=== PATIENT | male | born 1950 | race Caucasian/White ===

== ENCOUNTER 2016-09-20 11:54 | Inpatient (IN) | payer MEDICAID ==
[~2016-09-20] VITALS: Ht 165.1 cm; Wt 54.4 kg
[~2016-09-20 11:54] MED LIST: AZIT250T94 PO; D-ME473S18 PO
[2016-09-20] MEDS ORDERED: ACETAMINOPHEN 500 MG TAB PO STA (14:05)
--- NOTE | 2016-09-20 14:34 | RADRPT ---
PROCEDURE: XR Chest. CLINICAL INDICATION: Fever and cough TECHNIQUE: PA and lateral chest x-ray. COMPARISON: 03/15/2016 FINDINGS: Significant increased consolidation is seen in the left lung apex. Pleural thickening and scarring and hilar retraction is seen with infiltration and architectural distortion. This is similar in meghan earance when compared to the prior study dated 03/15/2016. This may all be related to benign postin flammatory changes and old burned out TB. However, CT scan of the chest is advised to exclude under lying neoplasm and/or superimposed acute infection. Left lower lung is clear. The right lung is clear. The cardiomediastinal silhouette is unremarkabl e. Aortic atherosclerotic vascular calcifications are present. The surrounding osseous structures are unremarkable. IMPRESSION: 1. Dense infiltration in the left upper lung with pleural thickening and scarring and architectural distortion. CT scan of the chest is advised to ensure that this is all related to benign old posti nflammatory change and to exclude underlying acute infection/neoplasm. RPTAT: HMJB .Jigar Keita MD, Date Time Electronically viewed and signed by .Jigar Keita MD, MD on 09/20/2016 14:34 .B/
--- NOTE | 2016-09-20 14:54 | ERD ---
ER Documentation Chief Complaint Date/Time DATE: 09/20/16 TIME: 14:52 Chief Complaint pt bib daughter with c/o fever, cough, stroud, sore throat x 3 days HPI This is a 66-year-old male who presents to the ER with headache, fever, chills, cough for the last 3 days. Patient is nonverbal secondary to prior surgery for a tumor.. Daughter his voice box was taken out. Patient has not taken anything for his symptoms. Patient did not receive the flu shot this year. Her daughter cough is worsening and she notices that her dad has been shaking a lot and his fever has not gotten any better. Patient denies any chest pain or shortness of breath. ROS 12 point review of systems was done, all negative except per HPI. Medications Home Meds Active Scripts Dextromethorphan Hb-Promethazine Hcl (Promethazine DM Syrup) 473 Ml Syrup, 5 ML PO Q6 Y for COUGH for 5 Days, ML Prov:ELAINE LÓPEZ MD 03/15/16 Azithromycin* (Zithromax*) 250 Mg Tablet, 250 MG PO .ZPACK DIRECTED, #6 TAB TAKE 500 MG (2 TABS) THE FIRST DAY THEN 250 MG (1 TAB) DAYS 2-5 Prov:ELAINE LÓPEZ MD 03/15/16 Allergies Allergies: Coded Allergies: No Known Allergy (Unverified , 09/20/16) PMhx/Soc History of Surgery: Yes (TRACHE) Anesthesia Reaction: No Hx Neurological Disorder: No Hx Respiratory Disorders: No Hx Cardiac Disorders: Yes (HTN) Hx Psychiatric Problems: No Hx Miscellaneous Medical Probl: No Hx Alcohol Use: No Hx Substance Use: No Hx Tobacco Use: No Physical Exam Vitals Vital Signs Date Time Temp Pulse Resp B/P Pulse Ox O2 Delivery O2 Flow Rate FiO2 09/20/16 12:00 101.2 124 20 145/88 98 Physical Exam GENERAL: The patient is well developed and appropriate for usual state of health , in no apparent distress. HEENT: Atraumatic. Conjunctivae are pink. Pupils equal, round, and reactive to light. Extraocular muscles are grossly intact. Bilateral tympanic membranes are clear with no evidence of erythema, effusion or dulling of the light reflex. The oropharynx is clear with no erythema or exudates. NECK: C-spine is soft and supple. There is no cervical lymphadenopathy. CHEST: Clear to auscultation bilaterally. There are no rales, wheezes or rhonchi. HEART: Regular rate and rhythm. No murmurs, clicks, rubs or gallops. ABDOMEN: Soft, nontender and nondistended. Good bowel sounds. No rebound or guarding. No gross peritonitis. No gross organomegaly or masses. No Casanova sign or McBurney point tenderness. SKIN: There is no apparent rash or petechia. The skin is warm and dry. Results 24 hrs Current Medications Medications (Trade) Dose Ordered Sig/Kg Route PRN Reason Start Time Stop Time Status Last Admin Dose Admin Acetaminophen (Tylenol Tab) 1,000 mg ONCE STAT PO 09/20/16 14:05 09/20/16 14:06 DC 09/20/16 14:12 Procedures/MDM This is a 66-year-old male that presents to the ER with fever, cough, chills, headache for the last 4 days. Patient appears to have some sort of fungal infection in the lungs. Patient did have fever and chills in the ER. Patient would benefit from admission to the hospital for further management and care Departure Diagnosis: Primary Impression: Cough Condition: FRANCISCA Yin Sep 20, 2016 14:54
--- NOTE | 2016-09-20 15:52 | RADRPT ---
PROCEDURE: CT Chest without contrast. CLINICAL INDICATION: Cough/fever TECHNIQUE: Volumetrically acquired images of the thorax obtained without intravenous contrast were reformatted in the axial, coronal, and sagittal planes. Radiation dose: CTDIvol = 3.9 mGy; total DLP = 153 mGy-cm. One or more of the following dose reduction techniques were used: - Automated exposure control. - Adjustment of the mA and/or kV according to patient size. - Use of iterative reconstruction technique. COMPARISON: No prior studies are available for comparison. FINDINGS: There is complete cicatricial atelectasis with fibrotic consolidation of the left upper lobe with tr action bronchiectasis. There is a mucous impaction. There may be a fungus ball/mycetoma identified in an area of cavitation within the consolidated left upper lobe. There is moderate centrilobular and paraseptal emphysema with diffuse bronchial wall thickening and airway ectasia. There are scattered subcentimeter pulmonary nodules measuring up to 6 mm in the right upper, right m iddle, and left lower lobes. There is peribronchial ground-glass opacity with interstitial thickeni ng identified in the anterior segment of the left upper lobe. There are multiple subcentimeter nasim-centimeter lymph nodes identified in the bilateral paratrachea l and para-aortic lymph node stations, likely reactive. Normal heart size without pericardial effusion. Included upper abdomen reveals no significant abnormality. No suspicious osseous lesion. IMPRESSION: Complete cicatricial atelectasis of the left upper lobe with traction bronchiectasis and associated volume loss/leftward mediastinal shift, presumably sequelae of prior granulomatous infection. There may be a fungus ball/mycetoma with an area of cavitation within the consolidated left upper lobe. S cattered nodular opacities in conjunction with areas of exudative inflammatory airway changes are co ncerning for superimposed acute granulomatous infection (i.e. Fungal, mycobacterial). Consider mitch elation with bronchoscopy/bronchoalveolar lavage. Background of moderate emphysema. Reactive multi-compartmental mediastinal lymphadenopathy. RPTAT: HEKC .Artie Craven MD, Date Time Electronically viewed and signed by .Artie Craven MD, on 09/20/2016 15:52 .C/
[2016-09-20] MEDS ORDERED: SOD CHLORIDE 0.9% 1,000 ML IV ONE (17:00)
[2016-09-20] MEDS ORDERED: morphine 10 MG INJ IV ONE (17:00)
[2016-09-20 17:14] LABS: ADD SCAN DIFF NO
[2016-09-20 17:16] LABS: BASOPHIL # 0.1 10^3/ul (0.0-0.1); BASOPHILS % 0.4 % (0.0-2.0); EOSINOPHILS # 0.1 10^3/ul (0.0-0.5); EOSINOPHILS % 0.7 % (0.0-7.0); HEMATOCRIT 37.5 % (42.0-52.0); HEMOGLOBIN 12.4 g/dl (14.0-18.0); LYMPHOCYTES # 1.1 10^3/ul (0.8-2.9); LYMPHOCYTES % 8.8 % (15.0-51.0); MEAN CORPUSCULAR HEMOGLOBIN 31.2 pg (29.0-33.0); MEAN CORPUSCULAR HGB CONC 33.1 g/dl (32.0-37.0); MEAN CORPUSCULAR VOLUME 94.2 fl (82.0-101.0); MEAN PLATELET VOLUME 8.3 fl (7.4-10.4); MONOCYTE # 1.1 10^3/ul (0.3-0.9); MONOCYTES % 8.8 % (0.0-11.0); PLATELET COUNT 434 10^3/UL (140-415); RED BLOOD COUNT 3.98 10^6/ul (4.70-6.10); RED CELL DISTRIBUTION WIDTH 14.6 % (11.5-14.5); WHITE BLOOD COUNT 12.3 10^3/ul (4.8-10.8)
[2016-09-20 17:19] LABS: ADD UMIC YES; URINE BILIRUBIN (Dip) NEGATIVE (NEGATIVE); URINE BLOOD (Dip) NEGATIVE (NEGATIVE); URINE COLOR LT. YELLOW (YELLOW); URINE GLUCOSE (Dip) NEGATIVE (NEGATIVE); URINE KETONES (Dip) NEGATIVE (NEGATIVE); URINE LEUKOCYTE ESTERASE (Dip) NEGATIVE (NEGATIVE); URINE NITRITE (Dip) NEGATIVE (NEGATIVE); URINE TOTAL PROTEIN (Dip) 4+ (NEGATIVE); URINE UROBILINOGEN (Dip) 0.2 E.U./dL (0.1-1.0)
[2016-09-20 17:25] LABS: INR 1.14; PROTIME 14.6 Sec (12.2-14.2); PT RATIO 1.1
[2016-09-20 17:57] LABS: SQUAMOUS EPITHELIAL CELL,UR RARE; URINE RBCS NONE SEEN /HPF (0)
[2016-09-20 17:58] LABS: ALBUMIN 4.2 g/dl (3.3-4.9); CHLORIDE 101 mmol/L (97-110)
[2016-09-20 17:59] LABS: POTASSIUM 4.8 mmol/L (3.5-5.1); SODIUM 143 mmol/L (135-144)
[2016-09-20 18:01] LABS: ALANINE AMINOTRANSFERASE 14 IU/L (13-69); ALKALINE PHOSPHATASE 99 IU/L (42-121); ANION GAP 21 (8-16); ASPARTATE AMINO TRANSFERASE 13 IU/L (15-46); BILIRUBIN,INDIRECT 0.2 mg/dl (0-1.1); BILIRUBIN,TOTAL 0.2 mg/dl (0.2-1.3); BLOOD UREA NITROGEN 30 mg/dl (7-20); CARBON DIOXIDE 26 mmol/L (21-31); CREATININE 2.68 mg/dl (0.61-1.24); TOTAL PROTEIN 7.2 g/dl (6.1-8.1)
[2016-09-20 18:02] LABS: CALCIUM 9.3 mg/dl (8.4-10.2); GLUCOSE 98 mg/dl (70-220)
[2016-09-20 18:17] LABS: TROPONIN-I < 0.010 ng/ml (0.00-0.12)
[2016-09-20] MEDS ORDERED: SOD CHLORIDE 0.9% 1,000 ML IV SCH ×2 (20:08→20:18)
--- NOTE | 2016-09-20 20:28 | HP ---
Date/Time of Note Date/Time of Note DATE: 09/20/16 TIME: 20:25 Assessment/Plan VTE Prophylaxis VTE Prophylaxis Intervention: heparin Assessment/Plan Assessment/Plan 66 yo male with a past medical history of essential hypertension, tracheostomy, who presents with fevers/chills x 3 days. 1. Sepsis 2/2 PNA - fungal vs other - will admit the patient to telemetry, consult pulm/ID, IV antibiotics and antifungals, AFB x 3, respiratory cultures, check influenza, respiratory precautions 2. Acute renal failure - 2/2 #1 - continue with IVF, monitor acute changes, renally adjust medications, avoid nephrotoxins, nephro consult 3. Essential hypertension - hydralazine prn for SBP > 160 4. Tracheostomy - frequent cleaning 5. GI ppx - pepcid 6. DVT ppx - heparin answered all of his questions. as per clinical course. this history and physical took greater then 45 minutes to complete HPI/ROS Admit Date/Time Admit Date/Time 09/20/2016, 8:25 pm Hx of Present Illness 66 yo male with a past medical history of essential hypertension, tracheostomy, who presents with fevers/chills x 3 days. He states that for the last 3 days, he has had cough with productive greenish sputum, blood tinged sputum, and high fevers with muscle/bone pain. He also complains of headaches. He is progressively getting short of breath. Denies any chest pain, loss of consciousness, urinary/bowel irregularities, nausea/vomiting/diarrhea/ constipation, or other constitutional symptoms. He recently came from [facility] in July 2016. Denies any sick contacts. 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 Medical History: hypertension Past Surgical History s/p tracheostomy Family History Significant Family History: hypertension Social History Alcohol Use: none Smoking Status: Former smoker Drug Use: none Exam/Review of Systems Vital Signs Vitals Vital Signs Date Time Temp Pulse Resp B/P Pulse Ox O2 Delivery O2 Flow Rate FiO2 09/20/16 19:39 98.8 94 20 135/63 99 Room Air Exam Exam Gen Lita: mild to moderate distress 2/2 chills , AAOx4 HEENT: NC/AT, PERRLA, EOMI, no pharyngeal erythema, no tonsillar exudates, no lymphadenopathy, no JVD, no carotid bruits NECK: supple, trach site with purulent greenish phlegm noted THORAX: symmetrical, no obvious deformities CV: S1S2, RRR, no M/G/R Lungs: scattered rhonchi, no overt wheezing or crackles Abd: soft, NT/ND, +BS, no rebound, no guarding, neg HSM EXT: trace bilateral lower extremity edema, no ecchymosis, no clubbing, FROM Neuro: CN II-XII grossly intact, no focal deficits Psych: good mentation, alert and oriented, good mood and affect Skin: C/D/I Labs Result Diagram: 09/20/16170909/20/161709 Medications Medications Current Medications Sodium Chloride (NS) 1,000 ml @ 80 mls/hr [id number] IV ; Start 09/20/16 at 20:08 ; Stop 09/21/16 at 08:37 Procedures Procedures CXR IMPRESSION: 1. Dense infiltration in the left upper lung with pleural thickening and scarring and architectural distortion. CT scan of the chest is advised to ensure that this is all related to benign old postinflammatory change and to exclude underlying acute infection/neoplasm. CT chest IMPRESSION: Complete cicatricial atelectasis of the left upper lobe with traction bronchiectasis and associated volume loss/leftward mediastinal shift, presumably sequelae of prior granulomatous infection. There may be a fungus ball /mycetoma with an area of cavitation within the consolidated left upper lobe. Scattered nodular opacities in conjunction with areas of exudative inflammatory airway changes are concerning for superimposed acute granulomatous infection ( i.e. Fungal, mycobacterial). Consider correlation with bronchoscopy/ bronchoalveolar lavage. Background of moderate emphysema. Reactive multi-compartmental mediastinal lymphadenopathy. ADELFO ADKINS MD Sep 20, 2016 20:28
[2016-09-20] MEDS ORDERED: hydrALAzine 20 MG INJ IV PRN (20:30)
[2016-09-20] MEDS ORDERED: ACETAMINOPHEN 325 MG TAB PO PRN (20:30)
[2016-09-20] MEDS ORDERED: ALBUTEROL/IPRATROPIUM (NEB) 3 ML AMP HHN PRN (20:30)
[2016-09-20] MEDS ORDERED: DOCUSATE SODIUM 100 MG CAP PO PRN (20:30)
[2016-09-20] MEDS ORDERED: NITROGLYCERIN (SL) 0.4 MG TAB SL PRN (20:30)
[2016-09-20] MEDS ORDERED: VANCOMYCIN IV PER PHARMACY XX SCH (20:30)
[2016-09-20] MEDS ORDERED: LORAZEPAM 2 MG INJ IV PRN (20:30)
[2016-09-20] MEDS ORDERED: ONDANSETRON 4 MG INJ IV PRN ×2 (20:30)
[2016-09-20] MEDS ORDERED: morphine 2 MG INJ IV PRN (20:30)
[2016-09-20] MEDS ORDERED: NACL 0.9% 3 ML SYG IV SCH (20:30)
[2016-09-20] MEDS ORDERED: FAMOTIDINE 20 MG TAB PO SCH (21:00)
[2016-09-20] MEDS: HEPARIN 5,000 UNIT/0.5 ML SYG SC SCH ×2 (21:00→22:24)
[2016-09-20 21:09] LABS: CREATINE KINASE 57 IU/L (23-200)
[2016-09-20 21:14] VITALS: TEMP 98.9
[2016-09-20 21:25] LABS: CK-MB 0.51 ng/ml (0.0-2.4); TROPONIN-I < 0.010 ng/ml (0.00-0.12)
[2016-09-20 21:30] VITALS: BP 150/70; PULSE 67; RESP 18
--- NOTE | 2016-09-20 21:44 | RADRPT ---
PROCEDURE: Retroperitoneal ultrasound. CLINICAL INDICATION: Acute renal failure TECHNIQUE: Clnie scale and color doppler ultrasound images of the retroperitoneum, kidneys, urinary bladder COMPARISON: No prior studies are available for comparison. FINDINGS: Right kidney 8.7 cm in length. Moderate right-sided cortical thinning measuring approximately 7 mm. Left kidney 7.2 cm in length. Moderate left-sided cortical thinning measuring 7 - 8 mm. Increased echogenicity of both kidneys. No hydronephrosis. No renal calculi. A few sub centimeter cortical cysts are present within each kidney. Bladder: No focal lesions. IMPRESSION: Atrophic echogenic kidneys suggestive of chronic medical renal disease. No evidence of hydronephrosis. RPTAT: AADD .Romel Gonzalez MD, MD Date Time Electronically viewed and signed by .Romel Gonzalez MD, on 09/20/2016 21:43 .B/
[2016-09-20 21:49] LABS: MAGNESIUM 1.7 mg/dl (1.7-2.5)
[2016-09-20 21:50] LABS: CHOL/HDL RATIO 1.7 RATIO
[2016-09-20 22:07] VITALS: Ht 165.1 cm; Wt 54.4 kg
[2016-09-20 22:20] LABS: THYROID STIMULATING HORMONE 49.2 MIU/L (0.465-4.680)
[2016-09-20] MEDS: ACETAMINOPHEN 325 MG TAB PO PRN ×2 (22:24→22:31)
[2016-09-20] MEDS: FLUCONAZOLE 100 MG/NS (PMX) 50 ML IVPB SCH (22:36)
[2016-09-20] MEDS: PIPER-TAZO 2.25 GM (PMX) 50 ML IVPB SCH (23:42)
[2016-09-21] MEDS: VANCOMYCIN 1 GM in NS 250 ML IVPB SCH (00:29)
[2016-09-21] MEDS ORDERED: MAGNESIUM SULFATE 2 GM/50 ML 50 ML IVPB ONE (02:00)
[2016-09-21 03:03] LABS: CREATINE KINASE 52 IU/L (23-200)
[2016-09-21 03:16] LABS: CK-MB 0.55 ng/ml (0.0-2.4); TROPONIN-I < 0.010 ng/ml (0.00-0.12)
[2016-09-21 03:28] LABS: T3 UPTAKE 37.5 % (23.5-40.5)
[2016-09-21] MEDS: ACETAMINOPHEN 325 MG TAB PO PRN ×2 (04:45→21:21)
[2016-09-21 05:29] LABS: ADD SCAN DIFF NO
[2016-09-21] MEDS: PIPER-TAZO 2.25 GM (PMX) 50 ML IVPB SCH ×3 (05:53→21:36)
[2016-09-21 05:59] LABS: POTASSIUM 4.5 mmol/L (3.5-5.1)
[2016-09-21 06:01] LABS: CREATININE 2.54 mg/dl (0.61-1.24)
[2016-09-21 06:02] LABS: CALCIUM 8.9 mg/dl (8.4-10.2)
[2016-09-21 08:20] LABS: BASOPHIL # 0.1 10^3/ul (0.0-0.1); BASOPHILS % 0.6 % (0.0-2.0); EOSINOPHILS # 0.8 10^3/ul (0.0-0.5); EOSINOPHILS % 10.1 % (0.0-7.0); HEMATOCRIT 35.6 % (42.0-52.0); HEMOGLOBIN 11.5 g/dl (14.0-18.0); MEAN CORPUSCULAR HEMOGLOBIN 30.7 pg (29.0-33.0); MEAN CORPUSCULAR HGB CONC 32.3 g/dl (32.0-37.0); MEAN CORPUSCULAR VOLUME 95.2 fl (82.0-101.0); MEAN PLATELET VOLUME 8.8 fl (7.4-10.4); MONOCYTE # 0.7 10^3/ul (0.3-0.9); MONOCYTES % 8.3 % (0.0-11.0); NEUTROPHIL # 5.7 10^3/ul (1.6-7.5); NEUTROPHILS % 68.5 % (39.0-77.0); PLATELET COUNT 397 10^3/UL (140-415); RED BLOOD COUNT 3.74 10^6/ul (4.70-6.10); WHITE BLOOD COUNT 8.3 10^3/ul (4.8-10.8)
[2016-09-21 08:52] VITALS: BP 144/63; RESP 20
[2016-09-21] MEDS ORDERED: FAMOTIDINE 20 MG TAB PO SCH (09:00)
[2016-09-21] MEDS: HEPARIN 5,000 UNIT/0.5 ML SYG SC SCH ×2 (09:16→20:59)
[2016-09-21 11:57] LABS: FREE T3 3.87 pg/ml (2.77-5.27)
[2016-09-21 12:11] LABS: THYROID STIMULATING HORMONE 62.2 MIU/L (0.465-4.680)
--- NOTE | 2016-09-21 12:37 | CONS ---
Date/Time of Note Date/Time of Note DATE: 09/21/16 TIME: 12:31 Assessment/Plan Assessment/Plan Additional Assessment/Plan Chest was reviewed without contrast from yesterday which is showing chronic appearing fibrocavitary changes involving the left upper lobe however there is appearance of a mycetoma and 1 of the cavities. Assessment recommendations; 1. Patient admitted with cough fever chills as well as sputum production possibly from community acquired pneumonia. 2. History of laryngeal cancer status post tracheostomy. 3. Chronic appearing fibrocavitary changes in left upper lobe from prior granulomatous infection. With the possibility of mycetoma. Continue current treatment. Continue antifungal treatment. Obtain serum Aspergillus antibodies as well as sputum for fungal stain. Consultation Date/Type/Reason Admit Date/Time 09/20/2016, 8:25 pm Date of Consultation: Sep 21, 2016 Type of Consultation: Pulmonary Reason for Consultation Pulmonary consultation obtained for evaluation of left upper lobe cavitary mass with possible aspergilloma. History presenting; patient is 56-year-old male who came into the emergency room yesterday with a 3 day history of cough, sputum production and low-grade fever. According to the patient the patient was doing fine prior to the onset of symptoms. He denies any hemoptysis, chest pain. Any nausea vomiting. Past medical history; 1. Patient has a history of tracheostomy which is permanent. Likely from prior laryngeal carcinoma. 2. History of COPD. 3. Patient is not aware of any severe pneumonia. Medications; were reviewed. Allergies; none. Next Social history; patient is an ex-smoker. No swelling or drug abuse. Family history; noncontributory. Occupational history; patient is currently on disability. 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 Review of systems; denies any headache, any visual changes. Denies any weight loss. Is able to swallow. Denies any dysphagia. Denies any chest pain, angina , complains of cough and sputum production. Denies any hemoptysis. Fever has resolved. Denies any abdominal pain, nausea. Denies any melena, hematochezia. Any urinary symptoms. Denies any dyspnea on exertion. Denies any skin changes. Has difficulty with right eye. Decreased vision. General examination; elderly male, currently in no distress. Past Medical History Medical History: hypertension Social History Alcohol Use: none Smoking Status: Former smoker Drug Use: none Exam/Review of Systems Vital Signs Vitals Vital Signs Date Time Temp Pulse Resp B/P Pulse Ox O2 Delivery O2 Flow Rate FiO2 09/21/16 08:52 99.1 88 20 144/63 93 09/20/16 21:30 Room Air Intake and Output 09/20/16 09/20/16 09/21/16 15:00 23:00 07:00 Intake Total 600 ml Balance 600 ml Exam H EENT examination; supple neck, no JVD. No lymphadenopathy. Midline trachea. Patient has a right corneal opacity. He is edentulous. Pharynx is clear. No neck masses. No thyromegaly. There is a tracheostomy in place. Chest examination; diminished but clear breath sounds bilaterally. S1-S2 audible, no murmurs. Regular rhythm. Abdomen examination; soft, nontender. No organomegaly. Bowel sounds audible. Extremity examination; no peripheral edema. No clubbing. Pulses 1+ bilaterally. [employer] examination; no focal deficit. Results Result Diagram: 09/21/16 0450 09/21/16 0450 Results 24 hrs Laboratory Tests Test 09/20/16 17:00 09/20/16 17:04 09/20/16 17:10 09/20/16 20:00 Urine Bilirubin NEGATIVE Urine Clarity CLEAR Urine Color LT. YELLOW Urine Glucose NEGATIVE Urine Hemoglobin NEGATIVE Urine Ketones NEGATIVE Urine Leukocyte Esterase NEGATIVE Urine Microscopic RBC NONE SEEN Urine Microscopic WBC NONE SEEN Urine Nitrite NEGATIVE Urine Specific [place] 1.020 Urine Squamous Epithelial Cells RARE Urine Total Protein 4+ H Urine Urobilinogen 0.2 E.U./dL Urine pH 6.0 Lactic Acid Level 1.3 1.6 Activated Partial Thromboplast Time 40.0 H Alanine Aminotransferase (ALT/SGPT) 14 Albumin 4.2 Albumin/Globulin Ratio 1.40 Alkaline Phosphatase 99 Anion Gap 21 H Aspartate Amino Transf (AST/SGOT) 13 L Basophils # 0.1 Basophils % 0.4 Blood Urea Nitrogen 30 H Calcium Level 9.3 Carbon Dioxide Level 26 Chloride Level 101 Creatinine 2.68 H Direct Bilirubin 0.00 Eosinophils # 0.1 Eosinophils % 0.7 Globulin 3.00 Glucose Level 98 Hematocrit 37.5 L Hemoglobin 12.4 L INR International Normalized Ratio 1.14 Indirect Bilirubin 0.2 Lymphocytes # 1.1 Lymphocytes % 8.8 L Mean Corpuscular Hemoglobin 31.2 Mean Corpuscular Hemoglobin Concent 33.1 Mean Corpuscular Volume 94.2 Mean Platelet Volume 8.3 Monocytes # 1.1 H Monocytes % 8.8 Neutrophils # 10.0 H Neutrophils % 81.0 H Nucleated Red Blood Cells # 0.0 Nucleated Red Blood Cells % 0.0 Platelet Count 434 H Potassium Level 4.8 Prothrombin Time 14.6 H Prothrombin Time Ratio 1.1 Red Blood Count 3.98 L Red Cell Distribution Width 14.6 H Sodium Level 143 Total Bilirubin 0.2 Total Protein 7.2 Troponin I < 0.010 White Blood Count 12.3 H Test 09/20/16 20:35 09/20/16 21:55 09/21/16 02:10 09/21/16 04:50 Cholesterol Level 148 Cholesterol/HDL Ratio 1.7 Creatine Kinase 57 52 Creatine Kinase Index 0.9 1.1 Creatinine Kinase MB (Mass) 0.51 0.55 HDL Cholesterol 84 H HIV (1&2) Antibody NEGATIVE Hemoglobin A1c 5.6 LDL Cholesterol, Calculated 49 Magnesium Level 1.7 Thyroid Stimulating Hormone (TSH) 49.200 H 62.200 H Triglycerides Level 75 Troponin I < 0.010 < 0.010 Lactic Acid Level 1.7 Free Thyroxine 0.93 Free Thyroxine Index 1.84 Free Triiodothyronine (T3) pg/mL 3.87 Thyroxine (T4) 4.9 L Triiodothyronine (T3) Uptake 37.5 Anion Gap 19 H Basophils # 0.1 Basophils % 0.6 Blood Urea Nitrogen 25 H Calcium Level 8.9 Carbon Dioxide Level 23 Chloride Level 105 Creatinine 2.54 H Eosinophils # 0.8 H Eosinophils % 10.1 H Glucose Level 100 Hematocrit 35.6 L Hemoglobin 11.5 L Lymphocytes # 1.0 Lymphocytes % 12.0 L Mean Corpuscular Hemoglobin 30.7 Mean Corpuscular Hemoglobin Concent 32.3 Mean Corpuscular Volume 95.2 Mean Platelet Volume 8.8 Monocytes # 0.7 Monocytes % 8.3 Neutrophils # 5.7 Neutrophils % 68.5 Nucleated Red Blood Cells # 0.0 Nucleated Red Blood Cells % 0.0 Platelet Count 397 Potassium Level 4.5 Red Blood Count 3.74 L Red Cell Distribution Width 15.0 H Sodium Level 142 White Blood Count 8.3 # Medications Medications Current Medications Lorazepam (Ativan) 0.5 mg Q6H PRN IV ANXIETY; Start 09/20/16 at 20:30 Ondansetron HCl (Zofran Inj) 4 mg Q6H PRN IV NAUSEA AND/OR VOMITING; Start at 20:30 Nitroglycerin (Nitroglycerin (Sl Tab) 0.4 Mg) 1 tab Q5M PRN SL CHEST PAIN; Start 09/20/16 at 20:30 Acetaminophen (Tylenol Tab) 650 mg Q6H PRN PO PAIN LEVEL 1-3 OR FEVER Last administered on 09/21/16 04:45; Admin Dose 650 MG; Start 09/20/16 at 20:30 Morphine Sulfate (morphine) 2 mg Q4H PRN IV PAIN LEVEL 7-10; Start 09/20/16 at 20:30 Docusate Sodium (Colace) 100 mg Q12H PRN PO CONSTIPATION; Start 09/20/16 at 20: 30 Heparin Sodium (Porcine) 5000 unit 5,000 unit Q12 SC Last administered on 09:16; Admin Dose 5,000 UNIT; Start 09/20/16 at 21:00 Piperacillin Sod/ Tazobactam Sod 50 ml @ 100 mls/hr Q8 IVPB Last administered on 09/21/16 05:53; Admin Dose 100 MLS/HR; Start 09/20/16 at 22:00 Fluconazole/ Sodium Chloride (Diflucan 100 Mg/ NS (Pmx)) 50 ml @ 50 mls/hr Q24H IVPB Last administered on 09/20/16 22:36; Admin Dose 50 MLS/HR; Start at 20:30 Hydralazine HCl 10 mg 10 mg Q6H PRN IV sbp > 160; Start 09/20/16 at 20:30 Vancomycin HCl (Vancocin) 250 ml @ 125 mls/hr Q48H IVPB Last administered on 00:29; Admin Dose 125 MLS/HR; Start 09/20/16 at 23:00 KRYSTAL PRADO Sep 21, 2016 12:37
--- NOTE | 2016-09-21 13:08 | CONS ---
Date/Time of Note Date/Time of Note DATE: 09/21/16 TIME: 13:02 Assessment/Plan Assessment/Plan Additional Assessment/Plan ASSESSMENT: 1. Sepsis 2/2 PNA 2. Acute kidney injury vs acute kidney injury on CKD unknown stage - 2/2 ATN From sepsis 3. Essential hypertension on Hydralazine, will add amlodipine 5mg po daily for better BP control 4. Tracheostomy - frequent cleaning 5. GI ppx - pepcid 6. DVT ppx - heparin renal US showed small kidneys c/w medical renal disease Thank you for this consultation, we will continue to follow patient Total time spent in this patient evaluation,assessment and plan, updating patient/Patient family and COmmunicating with Nursing staff took more than 60 minutes Consultation Date/Type/Reason Admit Date/Time 09/20/2016, 8:25 pm Date of Consultation: Sep 21, 2016 Type of Consultation: NEPHROLOGY Reason for Consultation acute Kidney injury Referring Provider: ADELFO ADKINS MD Hx of Present Illness 66 yo male with a past medical history of essential hypertension, tracheostomy, who presents with fevers/chills x 3 days. He states that for the last 3 days, he has had cough with productive greenish sputum, blood tinged sputum, and high fevers with muscle/bone pain. He also complains of headaches. He is progressively getting short of breath. Denies any chest pain, loss of consciousness, urinary/bowel irregularities, nausea/vomiting/diarrhea/ constipation, or other constitutional symptoms. He recently came from [facility] in July 2016. Denies any sick contacts. Renal has been consulted for Acute kidney injury vs LELA on CKD cough, fever, SOB Constitutional: chills ENT: congestion Respiratory: shortness of breath, wheezing Past Medical History Medical History: hypertension Past Surgical History not available Family History Significant Family History: no pertinent family hx Social History Alcohol Use: none Smoking Status: Former smoker Drug Use: none Exam/Review of Systems Vital Signs Vitals Vital Signs Date Time Temp Pulse Resp B/P Pulse Ox O2 Delivery O2 Flow Rate FiO2 09/21/16 08:52 99.1 88 20 144/63 93 09/20/16 21:30 Room Air Intake and Output 09/20/16 09/20/16 09/21/16 15:00 23:00 07:00 Intake Total 600 ml Balance 600 ml Exam Constitutional: alert Psych: no complaints Head: normocephalic ENMT: nl external ears & nose Respiratory: clear to auscultation, other (decreased BS on both lower lobes ) Cardiovascular: regular rate and rhythm Gastrointestinal: soft Results Result Diagram: 09/21/16 0450 09/21/16 0450 Results 24 hrs Laboratory Tests Test 09/20/16 17:00 09/20/16 17:04 09/20/16 17:10 09/20/16 20:00 Urine Bilirubin NEGATIVE Urine Clarity CLEAR Urine Color LT. YELLOW Urine Glucose NEGATIVE Urine Hemoglobin NEGATIVE Urine Ketones NEGATIVE Urine Leukocyte Esterase NEGATIVE Urine Microscopic RBC NONE SEEN Urine Microscopic WBC NONE SEEN Urine Nitrite NEGATIVE Urine Specific [place] 1.020 Urine Squamous Epithelial Cells RARE Urine Total Protein 4+ H Urine Urobilinogen 0.2 E.U./dL Urine pH 6.0 Lactic Acid Level 1.3 1.6 Activated Partial Thromboplast Time 40.0 H Alanine Aminotransferase (ALT/SGPT) 14 Albumin 4.2 Albumin/Globulin Ratio 1.40 Alkaline Phosphatase 99 Anion Gap 21 H Aspartate Amino Transf (AST/SGOT) 13 L Basophils # 0.1 Basophils % 0.4 Blood Urea Nitrogen 30 H Calcium Level 9.3 Carbon Dioxide Level 26 Chloride Level 101 Creatinine 2.68 H Direct Bilirubin 0.00 Eosinophils # 0.1 Eosinophils % 0.7 Globulin 3.00 Glucose Level 98 Hematocrit 37.5 L Hemoglobin 12.4 L INR International Normalized Ratio 1.14 Indirect Bilirubin 0.2 Lymphocytes # 1.1 Lymphocytes % 8.8 L Mean Corpuscular Hemoglobin 31.2 Mean Corpuscular Hemoglobin Concent 33.1 Mean Corpuscular Volume 94.2 Mean Platelet Volume 8.3 Monocytes # 1.1 H Monocytes % 8.8 Neutrophils # 10.0 H Neutrophils % 81.0 H Nucleated Red Blood Cells # 0.0 Nucleated Red Blood Cells % 0.0 Platelet Count 434 H Potassium Level 4.8 Prothrombin Time 14.6 H Prothrombin Time Ratio 1.1 Red Blood Count 3.98 L Red Cell Distribution Width 14.6 H Sodium Level 143 Total Bilirubin 0.2 Total Protein 7.2 Troponin I < 0.010 White Blood Count 12.3 H Test 09/20/16 20:35 09/20/16 21:55 09/21/16 02:10 09/21/16 04:50 Cholesterol Level 148 Cholesterol/HDL Ratio 1.7 Creatine Kinase 57 52 Creatine Kinase Index 0.9 1.1 Creatinine Kinase MB (Mass) 0.51 0.55 HDL Cholesterol 84 H HIV (1&2) Antibody NEGATIVE Hemoglobin A1c 5.6 LDL Cholesterol, Calculated 49 Magnesium Level 1.7 Thyroid Stimulating Hormone (TSH) 49.200 H 62.200 H Triglycerides Level 75 Troponin I < 0.010 < 0.010 Lactic Acid Level 1.7 Free Thyroxine 0.93 Free Thyroxine Index 1.84 Free Triiodothyronine (T3) pg/mL 3.87 Thyroxine (T4) 4.9 L Triiodothyronine (T3) Uptake 37.5 Anion Gap 19 H Basophils # 0.1 Basophils % 0.6 Blood Urea Nitrogen 25 H Calcium Level 8.9 Carbon Dioxide Level 23 Chloride Level 105 Creatinine 2.54 H Eosinophils # 0.8 H Eosinophils % 10.1 H Glucose Level 100 Hematocrit 35.6 L Hemoglobin 11.5 L Lymphocytes # 1.0 Lymphocytes % 12.0 L Mean Corpuscular Hemoglobin 30.7 Mean Corpuscular Hemoglobin Concent 32.3 Mean Corpuscular Volume 95.2 Mean Platelet Volume 8.8 Monocytes # 0.7 Monocytes % 8.3 Neutrophils # 5.7 Neutrophils % 68.5 Nucleated Red Blood Cells # 0.0 Nucleated Red Blood Cells % 0.0 Platelet Count 397 Potassium Level 4.5 Red Blood Count 3.74 L Red Cell Distribution Width 15.0 H Sodium Level 142 White Blood Count 8.3 # Medications Medications Current Medications Lorazepam (Ativan) 0.5 mg Q6H PRN IV ANXIETY; Start 09/20/16 at 20:30 Ondansetron HCl (Zofran Inj) 4 mg Q6H PRN IV NAUSEA AND/OR VOMITING; Start at 20:30 Nitroglycerin (Nitroglycerin (Sl Tab) 0.4 Mg) 1 tab Q5M PRN SL CHEST PAIN; Start 09/20/16 at 20:30 Acetaminophen (Tylenol Tab) 650 mg Q6H PRN PO PAIN LEVEL 1-3 OR FEVER Last administered on 09/21/16t 04:45; Admin Dose 650 MG; Start 09/20/16 at 20:30 Morphine Sulfate (morphine) 2 mg Q4H PRN IV PAIN LEVEL 7-10; Start 09/20/16 at 20:30 Docusate Sodium (Colace) 100 mg Q12H PRN PO CONSTIPATION; Start 09/20/16 at 20: 30 Heparin Sodium (Porcine) 5000 unit 5,000 unit Q12 SC Last administered on 09:16; Admin Dose 5,000 UNIT; Start 09/20/16 at 21:00 Piperacillin Sod/ Tazobactam Sod 50 ml @ 100 mls/hr Q8 IVPB Last administered on 09/21/16 05:53; Admin Dose 100 MLS/HR; Start 09/20/16 at 22:00 Fluconazole/ Sodium Chloride (Diflucan 100 Mg/ NS (Pmx)) 50 ml @ 50 mls/hr Q24H IVPB Last administered on 09/20/16 22:36; Admin Dose 50 MLS/HR; Start at 20:30 Hydralazine HCl 10 mg 10 mg Q6H PRN IV sbp > 160; Start 09/20/16 at 20:30 Vancomycin HCl (Vancocin) 250 ml @ 125 mls/hr Q48H IVPB Last administered on 00:29; Admin Dose 125 MLS/HR; Start 09/20/16 at 23:00 MASSIMO BRADLEY MD Sep 21, 2016 13:08
[2016-09-21] MEDS ORDERED: AMLODIPINE 5 MG TAB PO ONE (13:30)
--- NOTE | 2016-09-21 14:33 | PN ---
Date/Time of Note Date/Time of Note DATE: 09/21/16 TIME: 14:26 Assessment/Plan VTE Prophylaxis VTE Prophylaxis Intervention: SCD's Lines/Catheters IV Catheter Type (from Nrs): Peripheral IV Assessment/Plan Chief Complaint/Hosp Course Additional Assessment/Plan ASSESSMENT: 1. Sepsis 2/2 PNA , continue broad-spectrum IV antibiotics, pulmonology has been consulted 2. Acute kidney injury vs acute kidney injury on CKD unknown stage - 2/2 ATN From sepsis 3. Essential hypertension on Hydralazine, will add amlodipine 5mg po daily for better BP control 4. History of laryngeal cancer status post tracheostomy. 5. Chronic appearing fibrocavitary changes in left upper lobe from prior granulomatous infection. With the possibility of mycetoma. 6. GI ppx - pepcid 7. DVT ppx - heparin We will continue monitor patient closely for recommendation management treatment as clinical course Problems: Subjective 24 Hr Interval Summary Free Text/Dictation Patient continues to complain of having shortness of breath without any chest pain Tolerating oral intake No nausea vomiting diarrhea Decrease in frequency of cough Exam/Review of Systems Vital Signs Vitals Vital Signs Date Time Temp Pulse Resp B/P Pulse Ox O2 Delivery O2 Flow Rate FiO2 09/21/16 08:52 99.1 88 20 144/63 93 09/20/16 21:30 Room Air Intake and Output 09/20/16 09/20/16 09/21/16 15:00 23:00 07:00 Intake Total 600 ml Balance 600 ml Exam General: The patient is well-developed, Not in acute distress. HEENT: Atraumatic, normocephalic. The pupils are equal and round . Neck: Supple with full range of motion. Chest: Normal expansion of the thorax during inspiration Lungs: Decreased breath sounds bilaterally Heart: Normal S1-S2, Regular rhythm and rate. Abdomen: Soft , nontender, nondistended , bowel sounds are present. Extremities: Normal to inspection, no edema no cyanosis Neurologic: Normal mental status,The patient is awake, alert and oriented . Results Result Diagram: 09/21/16 0450 09/21/16 0450 Results 24 hrs Laboratory Tests Test 09/20/16 17:00 09/20/16 17:04 09/20/16 17:10 09/20/16 20:00 Urine Bilirubin NEGATIVE Urine Clarity CLEAR Urine Color LT. YELLOW Urine Glucose NEGATIVE Urine Hemoglobin NEGATIVE Urine Ketones NEGATIVE Urine Leukocyte Esterase NEGATIVE Urine Microscopic RBC NONE SEEN Urine Microscopic WBC NONE SEEN Urine Nitrite NEGATIVE Urine Specific [place] 1.020 Urine Squamous Epithelial Cells RARE Urine Total Protein 4+ H Urine Urobilinogen 0.2 E.U./dL Urine pH 6.0 Lactic Acid Level 1.3 1.6 Activated Partial Thromboplast Time 40.0 H Alanine Aminotransferase (ALT/SGPT) 14 Albumin 4.2 Albumin/Globulin Ratio 1.40 Alkaline Phosphatase 99 Anion Gap 21 H Aspartate Amino Transf (AST/SGOT) 13 L Basophils # 0.1 Basophils % 0.4 Blood Urea Nitrogen 30 H Calcium Level 9.3 Carbon Dioxide Level 26 Chloride Level 101 Creatinine 2.68 H Direct Bilirubin 0.00 Eosinophils # 0.1 Eosinophils % 0.7 Globulin 3.00 Glucose Level 98 Hematocrit 37.5 L Hemoglobin 12.4 L INR International Normalized Ratio 1.14 Indirect Bilirubin 0.2 Lymphocytes # 1.1 Lymphocytes % 8.8 L Mean Corpuscular Hemoglobin 31.2 Mean Corpuscular Hemoglobin Concent 33.1 Mean Corpuscular Volume 94.2 Mean Platelet Volume 8.3 Monocytes # 1.1 H Monocytes % 8.8 Neutrophils # 10.0 H Neutrophils % 81.0 H Nucleated Red Blood Cells # 0.0 Nucleated Red Blood Cells % 0.0 Platelet Count 434 H Potassium Level 4.8 Prothrombin Time 14.6 H Prothrombin Time Ratio 1.1 Red Blood Count 3.98 L Red Cell Distribution Width 14.6 H Sodium Level 143 Total Bilirubin 0.2 Total Protein 7.2 Troponin I < 0.010 White Blood Count 12.3 H Test 09/20/16 20:35 09/20/16 21:55 09/21/16 02:10 09/21/16 04:50 Cholesterol Level 148 Cholesterol/HDL Ratio 1.7 Creatine Kinase 57 52 Creatine Kinase Index 0.9 1.1 Creatinine Kinase MB (Mass) 0.51 0.55 HDL Cholesterol 84 H HIV (1&2) Antibody NEGATIVE Hemoglobin A1c 5.6 LDL Cholesterol, Calculated 49 Magnesium Level 1.7 Thyroid Stimulating Hormone (TSH) 49.200 H 62.200 H Triglycerides Level 75 Troponin I < 0.010 < 0.010 Lactic Acid Level 1.7 Free Thyroxine 0.93 Free Thyroxine Index 1.84 Free Triiodothyronine (T3) pg/mL 3.87 Thyroxine (T4) 4.9 L Triiodothyronine (T3) Uptake 37.5 Anion Gap 19 H Basophils # 0.1 Basophils % 0.6 Blood Urea Nitrogen 25 H Calcium Level 8.9 Carbon Dioxide Level 23 Chloride Level 105 Creatinine 2.54 H Eosinophils # 0.8 H Eosinophils % 10.1 H Glucose Level 100 Hematocrit 35.6 L Hemoglobin 11.5 L Lymphocytes # 1.0 Lymphocytes % 12.0 L Mean Corpuscular Hemoglobin 30.7 Mean Corpuscular Hemoglobin Concent 32.3 Mean Corpuscular Volume 95.2 Mean Platelet Volume 8.8 Monocytes # 0.7 Monocytes % 8.3 Neutrophils # 5.7 Neutrophils % 68.5 Nucleated Red Blood Cells # 0.0 Nucleated Red Blood Cells % 0.0 Platelet Count 397 Potassium Level 4.5 Red Blood Count 3.74 L Red Cell Distribution Width 15.0 H Sodium Level 142 White Blood Count 8.3 # Medications Medications Current Medications Lorazepam (Ativan) 0.5 mg Q6H PRN IV ANXIETY; Start 09/20/16 at 20:30 Ondansetron HCl (Zofran Inj) 4 mg Q6H PRN IV NAUSEA AND/OR VOMITING; Start at 20:30 Nitroglycerin (Nitroglycerin (Sl Tab) 0.4 Mg) 1 tab Q5M PRN SL CHEST PAIN; Start 09/20/16 at 20:30 Acetaminophen (Tylenol Tab) 650 mg Q6H PRN PO PAIN LEVEL 1-3 OR FEVER Last administered on 09/21/16 04:45; Admin Dose 650 MG; Start 09/20/16 at 20:30 Morphine Sulfate (morphine) 2 mg Q4H PRN IV PAIN LEVEL 7-10; Start 09/20/16 at 20:30 Docusate Sodium (Colace) 100 mg Q12H PRN PO CONSTIPATION; Start 09/20/16 at 20: 30 Heparin Sodium (Porcine) 5000 unit 5,000 unit Q12 SC Last administered on 09:16; Admin Dose 5,000 UNIT; Start 09/20/16 at 21:00 Piperacillin Sod/ Tazobactam Sod 50 ml @ 100 mls/hr Q8 IVPB Last administered on 09/21/16 05:53; Admin Dose 100 MLS/HR; Start 09/20/16 at 22:00 Fluconazole/ Sodium Chloride (Diflucan 100 Mg/ NS (Pmx)) 50 ml @ 50 mls/hr Q24H IVPB Last administered on 09/20/16 22:36; Admin Dose 50 MLS/HR; Start at 20:30 Hydralazine HCl 10 mg 10 mg Q6H PRN IV sbp > 160; Start 09/20/16 at 20:30 Vancomycin HCl (Vancocin) 250 ml @ 125 mls/hr Q48H IVPB Last administered on 00:29; Admin Dose 125 MLS/HR; Start 09/20/16 at 23:00 Amlodipine Besylate (Norvasc) 5 mg DAILY PO ; Start 09/22/16 at 09:00 HYUN AGUILAR MD Sep 21, 2016 14:33
[2016-09-21] MEDS ORDERED: LEVOTHYROXINE 150 MCG TAB PO ONE (17:30)
[2016-09-21] MEDS: FLUCONAZOLE 100 MG/NS (PMX) 50 ML IVPB SCH (19:57)
[2016-09-21 20:00] VITALS: BP 125/58; RESP 20
[2016-09-22] MEDS: PIPER-TAZO 2.25 GM (PMX) 50 ML IVPB SCH ×3 (05:32→22:01)
[2016-09-22] MEDS: LEVOTHYROXINE 100 MCG TAB PO SCH (05:32)
[2016-09-22 06:05] LABS: ADD SCAN DIFF NO
[2016-09-22 06:17] LABS: BASOPHIL # 0.1 10^3/ul (0.0-0.1); BASOPHILS % 0.7 % (0.0-2.0); EOSINOPHILS % 14.5 % (0.0-7.0); HEMATOCRIT 32.8 % (42.0-52.0); HEMOGLOBIN 10.8 g/dl (14.0-18.0); LYMPHOCYTES # 1.2 10^3/ul (0.8-2.9); LYMPHOCYTES % 16.7 % (15.0-51.0); MEAN CORPUSCULAR HEMOGLOBIN 31.1 pg (29.0-33.0); MEAN CORPUSCULAR HGB CONC 32.9 g/dl (32.0-37.0); MEAN CORPUSCULAR VOLUME 94.5 fl (82.0-101.0); MEAN PLATELET VOLUME 8.4 fl (7.4-10.4); MONOCYTE # 0.6 10^3/ul (0.3-0.9); MONOCYTES % 8.1 % (0.0-11.0); NEUTROPHIL # 4.2 10^3/ul (1.6-7.5); NEUTROPHILS % 59.6 % (39.0-77.0); PLATELET COUNT 369 10^3/UL (140-415); RED BLOOD COUNT 3.47 10^6/ul (4.70-6.10); RED CELL DISTRIBUTION WIDTH 14.9 % (11.5-14.5); WHITE BLOOD COUNT 7.1 10^3/ul (4.8-10.8)
[2016-09-22 06:57] LABS: POTASSIUM 4.8 mmol/L (3.5-5.1)
[2016-09-22 07:00] LABS: CREATININE 2.81 mg/dl (0.61-1.24)
[2016-09-22 07:01] LABS: CALCIUM 9.2 mg/dl (8.4-10.2); MAGNESIUM 2.3 mg/dl (1.7-2.5)
--- NOTE | 2016-09-22 08:34 | CONS ---
Date/Time of Note Date/Time of Note DATE: 09/22/16 TIME: 08:30 Assessment/Plan Assessment/Plan Problems: (1) Hypothyroidism (acquired) Status: Acute Comment: This is a new diagnosis the patient did not have any knowledge of this. I repeated the TSH to make sure we were dealing with a lab fluke and this is indeed an elevated TSH. He is on medications should artificially elevate the TSH. For now we will get him started on levothyroxine replacement dose therapy as there is no evidence of myxedema or risk. Be on the safe side I will also check his prolactin level just to make sure there is not any crossover from there which I doubt Consultation Date/Type/Reason Admit Date/Time 09/20/2016, 8:25 pm Date of Consultation: Sep 21, 2016 Type of Consultation: Endocrinology Reason for Consultation Elevated tsh Hx of Present Illness Patient found to have elevated TSH. On review the patient and with the patient' s family present there is no known history of thyroid disorder and the patient has not been on any type of thyroid medications have gone through the list of all the new names of thyroid hormone replacement he did not recognize any ofthem. Status post tracheostomy with limited ability to communicate. Subjective hx not possible: pt non-verbal ENT: congestion Respiratory: shortness of breath, wheezing Psychological: no complaints Past Medical History History of laryngeal carcinoma. Medical History: hypertension Past Surgical History Status post tracheotomy. Family History Significant Family History: no pertinent family hx Social History Alcohol Use: none Smoking Status: Former smoker Drug Use: none Exam/Review of Systems Vital Signs Vitals Vital Signs Date Time Temp Pulse Resp B/P Pulse Ox O2 Delivery O2 Flow Rate FiO2 09/21/16 22:03 98.5 09/21/16 20:00 95 20 125/58 97 09/20/16 21:30 Room Air Intake and Output 09/21/16 09/21/16 09/22/16 15:00 23:00 07:00 Intake Total 790 ml 720 ml Balance 790 ml 720 ml Exam Constitutional: alert, non-verbal Neck: non-tender, other (There is a tracheostomy hole at the sternal notch I am unable to appreciate thyroid tissue), supple Results Result Diagram: 09/22/16 0525 09/22/16 0525 Results 24 hrs Laboratory Tests Test 09/22/16 05:25 Anion Gap 16 Basophils # 0.1 Basophils % 0.7 Blood Urea Nitrogen 22 H Calcium Level 9.2 Carbon Dioxide Level 27 Chloride Level 107 Creatinine 2.81 H Eosinophils # 1.0 H Eosinophils % 14.5 H Glucose Level 92 Hematocrit 32.8 L Hemoglobin 10.8 L Lymphocytes # 1.2 Lymphocytes % 16.7 Magnesium Level 2.3 Mean Corpuscular Hemoglobin 31.1 Mean Corpuscular Hemoglobin Concent 32.9 Mean Corpuscular Volume 94.5 Mean Platelet Volume 8.4 Monocytes # 0.6 Monocytes % 8.1 Neutrophils # 4.2 Neutrophils % 59.6 Nucleated Red Blood Cells # 0.0 Nucleated Red Blood Cells % 0.0 Platelet Count 369 Potassium Level 4.8 Red Blood Count 3.47 L Red Cell Distribution Width 14.9 H Sodium Level 145 H White Blood Count 7.1 Medications Medications Current Medications Lorazepam (Ativan) 0.5 mg Q6H PRN IV ANXIETY; Start 09/20/16 at 20:30 Ondansetron HCl (Zofran Inj) 4 mg Q6H PRN IV NAUSEA AND/OR VOMITING; Start at 20:30 Nitroglycerin (Nitroglycerin (Sl Tab) 0.4 Mg) 1 tab Q5M PRN SL CHEST PAIN; Start 09/20/16 at 20:30 Acetaminophen (Tylenol Tab) 650 mg Q6H PRN PO PAIN LEVEL 1-3 OR FEVER Last administered on 09/21/16 21:21; Admin Dose 650 MG; Start 09/20/16 at 20:30 Morphine Sulfate (morphine) 2 mg Q4H PRN IV PAIN LEVEL 7-10; Start 09/20/16 at 20:30 Docusate Sodium (Colace) 100 mg Q12H PRN PO CONSTIPATION; Start 09/20/16 at 20: 30 Heparin Sodium (Porcine) 5000 unit 5,000 unit Q12 SC Last administered on 20:59; Admin Dose 5,000 UNIT; Start 09/20/16 at 21:00 Piperacillin Sod/ Tazobactam Sod 50 ml @ 100 mls/hr Q8 IVPB Last administered on 09/22/16 05:32; Admin Dose 100 MLS/HR; Start 09/20/16 at 22:00 Fluconazole/ Sodium Chloride (Diflucan 100 Mg/ NS (Pmx)) 50 ml @ 50 mls/hr Q24H IVPB Last administered on 09/21/16 19:57; Admin Dose 50 MLS/HR; Start at 20:30 Hydralazine HCl 10 mg 10 mg Q6H PRN IV sbp > 160; Start 09/20/16 at 20:30 Vancomycin HCl (Vancocin) 250 ml @ 125 mls/hr Q48H IVPB Last administered on 00:29; Admin Dose 125 MLS/HR; Start 09/20/16 at 23:00 Amlodipine Besylate (Norvasc) 5 mg DAILY PO ; Start 09/22/16 at 09:00 Levothyroxine Sodium (Synthroid) 100 mcg DAILY@06 PO Last administered on 05:32; Admin Dose 100 MCG; Start 09/22/16 at 06:00 SURINDER GILLILAND MD Sep 22, 2016 08:34
[2016-09-22 09:03] VITALS: BP 133/67; RESP 18
[2016-09-22] MEDS: AMLODIPINE 5 MG TAB PO SCH (09:42)
[2016-09-22] MEDS: HEPARIN 5,000 UNIT/0.5 ML SYG SC SCH ×2 (09:44→20:20)
[2016-09-22] MEDS: DEXTROSE 5% 1,000 ML IV SCH (12:21)
--- NOTE | 2016-09-22 12:54 | CONS ---
Date/Time of Note Date/Time of Note DATE: 09/22/16 TIME: 12:52 Assessment/Plan Assessment/Plan Additional Assessment/Plan Assessment and recommendations; 1. Patient admitted with COPD exacerbation and acute bronchitis. 2. History of laryngectomy. 3. Chronic appearing left upper lobe fibrocavitary changes with appearance of mycetoma in 1 of the cavities. 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 Continue current treatment. Awaiting sputum as well as serology for aspergillosis. Consultation Date/Type/Reason Admit Date/Time Sep 20, 2016 at 20:10 Initial Consult Date 09/21/16 Type of Consultation: Pulmonary Referring Provider: ADELFO ADKINS MD 24 HR Interval Summary Free Text/Dictation Patient's condition is stable. Still complains of chest congestion, sputum production. Denies any shortness of breath. Any hemoptysis. Denies any chest pain. General examination; elderly male, currently in no distress. Awake and alert. Patient is a phasic on account of laryngectomy. Exam/Review of Systems Vital Signs Vitals Vital Signs Date Time Temp Pulse Resp B/P Pulse Ox O2 Delivery O2 Flow Rate FiO2 09/22/16 10:52 98.3 09/22/16 09:03 82 18 133/67 96 09/20/16 21:30 Room Air Intake and Output 09/21/16 09/21/16 09/22/16 15:00 23:00 07:00 Intake Total 790 ml 720 ml Balance 790 ml 720 ml Exam H EENT examination; supple neck, no JVD. No lymphadenopathy. Midline trachea. Tracheostomy in place. Patient is edentulous. Pupils are midsize and reactive to light. Chest examination; diminished but clear breath sounds bilaterally. No added sounds. S1-S2 audible, no murmurs. Regular rhythm. Abdomen examination; soft, nondistended. No organomegaly. Bowel sounds audible. Nontender. Extremity examination; no peripheral edema. There is no clubbing. Pulses 1+ bilaterally. OPERATING ROOM REGISTERED NURSE examination; no focal deficit. Patient is ambulating in the room. Results Result Diagram: 09/22/1625 09/22/16 05 Results 24 hrs Laboratory Tests Test 09/22/16 05:25 Anion Gap 16 Basophils # 0.1 Basophils % 0.7 Blood Urea Nitrogen 22 H Calcium Level 9.2 Carbon Dioxide Level 27 Chloride Level 107 Creatinine 2.81 H Eosinophils # 1.0 H Eosinophils % 14.5 H Glucose Level 92 Hematocrit 32.8 L Hemoglobin 10.8 L Lymphocytes # 1.2 Lymphocytes % 16.7 Magnesium Level 2.3 Mean Corpuscular Hemoglobin 31.1 Mean Corpuscular Hemoglobin Concent 32.9 Mean Corpuscular Volume 94.5 Mean Platelet Volume 8.4 Monocytes # 0.6 Monocytes % 8.1 Neutrophils # 4.2 Neutrophils % 59.6 Nucleated Red Blood Cells # 0.0 Nucleated Red Blood Cells % 0.0 Platelet Count 369 Potassium Level 4.8 Red Blood Count 3.47 L Red Cell Distribution Width 14.9 H Sodium Level 145 H White Blood Count 7.1 Medications Medications Current Medications Lorazepam (Ativan) 0.5 mg Q6H PRN IV ANXIETY; Start 09/20/16 at 20:30 Ondansetron HCl (Zofran Inj) 4 mg Q6H PRN IV NAUSEA AND/OR VOMITING; Start at 20:30 Nitroglycerin (Nitroglycerin (Sl Tab) 0.4 Mg) 1 tab Q5M PRN SL CHEST PAIN; Start 09/20/16 at 20:30 Acetaminophen (Tylenol Tab) 650 mg Q6H PRN PO PAIN LEVEL 1-3 OR FEVER Last administered on 09/21/16 21:21; Admin Dose 650 MG; Start 09/20/16 at 20:30 Morphine Sulfate (morphine) 2 mg Q4H PRN IV PAIN LEVEL 7-10; Start 09/20/16 at 20:30 Docusate Sodium (Colace) 100 mg Q12H PRN PO CONSTIPATION; Start 09/20/16 at 20: 30 Heparin Sodium (Porcine) 5000 unit 5,000 unit Q12 SC Last administered on 09:44; Admin Dose 5,000 UNIT; Start 09/20/16 at 21:00 Piperacillin Sod/ Tazobactam Sod 50 ml @ 100 mls/hr Q8 IVPB Last administered on 09/22/16 05:32; Admin Dose 100 MLS/HR; Start 09/20/16 at 22:00 Fluconazole/ Sodium Chloride (Diflucan 100 Mg/ NS (Pmx)) 50 ml @ 50 mls/hr Q24H IVPB Last administered on 09/21/16 19:57; Admin Dose 50 MLS/HR; Start at 20:30 Hydralazine HCl 10 mg 10 mg Q6H PRN IV sbp > 160; Start 09/20/16 at 20:30 Vancomycin HCl (Vancocin) 250 ml @ 125 mls/hr Q48H IVPB Last administered on 00:29; Admin Dose 125 MLS/HR; Start 09/20/16 at 23:00 Amlodipine Besylate (Norvasc) 5 mg DAILY PO Last administered on 09/22/16 09: 42; Admin Dose 5 MG; Start 09/22/16 at 09:00 Levothyroxine Sodium 100 mcg 100 mcg DAILY@06 PO Last administered on 05:32; Admin Dose 100 MCG; Start 09/22/16 at 06:00 Dextrose (D5W) 1,000 ml @ 70 mls/hr [id number] IV Last administered on 09/22/16 12:21; Admin Dose 70 MLS/HR; Start 09/22/16 at 12:00 KRYSTAL PRADO Sep 22, 2016 12:54
--- NOTE | 2016-09-22 14:48 | PN ---
Date/Time of Note Date/Time of Note DATE: 09/22/16 TIME: 14:40 Assessment/Plan VTE Prophylaxis VTE Prophylaxis Intervention: heparin Lines/Catheters IV Catheter Type (from Nrs): Saline Lock Assessment/Plan Assessment/Plan 1. COPD exacerbation and acute bronchitis. stable 2. History of laryngectomy. 3. Chronic appearing left upper lobe fibrocavitary changes with appearance of mycetoma in 1 of the cavities. 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 awaiting for serology , on vancomycin and zosyn 4. HTN, controlled 5. Hypothyroidism, on supplement 6. DVT prophylaxis: heparin Subjective 24 Hr Interval Summary Free Text/Dictation no SOB or fever Exam/Review of Systems Vital Signs Vitals Vital Signs Date Time Temp Pulse Resp B/P Pulse Ox O2 Delivery O2 Flow Rate FiO2 09/22/16 10:52 98.3 09/22/16 09:03 82 18 133/67 96 09/20/16 21:30 Room Air Intake and Output 09/21/16 09/21/16 09/22/16 15:00 23:00 07:00 Intake Total 790 ml 720 ml Balance 790 ml 720 ml Exam Constitutional: alert, oriented, well developed Psych: nl mood/affect, no complaints Head: atraumatic, normocephalic Eyes: EOMI, PERRL, nl conjunctiva, nl lids ENMT: nl external ears & nose, nl lips & teeth, nl nasal mucosa & septum Neck: supple Respiratory: clear to auscultation, normal air movement, No congested cough, No crackles/rales, No diminished breath sounds, No intercostal retraction, No labored breathing, No other, No respirations, No tactile fremitus, No wheezing Cardiovascular: nl pulses, regular rate and rhythm, No S3, No S4, No bruits, No diastolic murmur, No edema, No gallop, No irregular rhythm, No jugular venous distention (JVD), No murmurs/extra sounds, No other, No rub, No systolic murmur Gastrointestinal: nl liver, spleen, non-tender, soft, No ascites, No bowel sounds, No distended, No firm, No hepatomegaly, No mass , No other, No rebound or guarding, No splenomegaly, No surgical scars, No tender Musculoskeletal: nl extremities to inspection Extremities: normal pulses Neurological: [employer] ATTENDANT II-XII intact, nl mental status, nl speech, nl strength Skin: nl turgor Lymph: nl lymph nodes Results Result Diagram: 09/22/1652409/22/16 05 Results 24 hrs Laboratory Tests Test 09/22/16 05:25 Anion Gap 16 Basophils # 0.1 Basophils % 0.7 Blood Urea Nitrogen 22 H Calcium Level 9.2 Carbon Dioxide Level 27 Chloride Level 107 Creatinine 2.81 H Eosinophils # 1.0 H Eosinophils % 14.5 H Glucose Level 92 Hematocrit 32.8 L Hemoglobin 10.8 L Lymphocytes # 1.2 Lymphocytes % 16.7 Magnesium Level 2.3 Mean Corpuscular Hemoglobin 31.1 Mean Corpuscular Hemoglobin Concent 32.9 Mean Corpuscular Volume 94.5 Mean Platelet Volume 8.4 Monocytes # 0.6 Monocytes % 8.1 Neutrophils # 4.2 Neutrophils % 59.6 Nucleated Red Blood Cells # 0.0 Nucleated Red Blood Cells % 0.0 Platelet Count 369 Potassium Level 4.8 Red Blood Count 3.47 L Red Cell Distribution Width 14.9 H Sodium Level 145 H White Blood Count 7.1 Medications Medications Current Medications Lorazepam (Ativan) 0.5 mg Q6H PRN IV ANXIETY; Start 09/20/16 at 20:30 Ondansetron HCl (Zofran Inj) 4 mg Q6H PRN IV NAUSEA AND/OR VOMITING; Start at 20:30 Nitroglycerin (Nitroglycerin (Sl Tab) 0.4 Mg) 1 tab Q5M PRN SL CHEST PAIN; Start 09/20/16 at 20:30 Acetaminophen (Tylenol Tab) 650 mg Q6H PRN PO PAIN LEVEL 1-3 OR FEVER Last administered on 09/21/16 21:21; Admin Dose 650 MG; Start 09/20/16 at 20:30 Morphine Sulfate (morphine) 2 mg Q4H PRN IV PAIN LEVEL 7-10; Start 09/20/16 at 20:30 Docusate Sodium (Colace) 100 mg Q12H PRN PO CONSTIPATION; Start 09/20/16 at 20: 30 Heparin Sodium (Porcine) 5000 unit 5,000 unit Q12 SC Last administered on 09:44; Admin Dose 5,000 UNIT; Start 09/20/16 at 21:00 Piperacillin Sod/ Tazobactam Sod 50 ml @ 100 mls/hr Q8 IVPB Last administered on 09/22/16 13:51; Admin Dose 100 MLS/HR; Start 09/20/16 at 22:00 Fluconazole/ Sodium Chloride (Diflucan 100 Mg/ NS (Pmx)) 50 ml @ 50 mls/hr Q24H IVPB Last administered on 09/21/16 19:57; Admin Dose 50 MLS/HR; Start at 20:30 Hydralazine HCl 10 mg 10 mg Q6H PRN IV sbp > 160; Start 09/20/16 at 20:30 Vancomycin HCl (Vancocin) 250 ml @ 125 mls/hr Q48H IVPB Last administered on 00:29; Admin Dose 125 MLS/HR; Start 09/20/16 at 23:00 Amlodipine Besylate (Norvasc) 5 mg DAILY PO Last administered on 09/22/16 09: 42; Admin Dose 5 MG; Start 09/22/16 at 09:00 Levothyroxine Sodium 100 mcg 100 mcg DAILY@06 PO Last administered on 05:32; Admin Dose 100 MCG; Start 09/22/16 at 06:00 Dextrose (D5W) 1,000 ml @ 70 mls/hr [id number] IV Last administered on 09/22/16 12:21; Admin Dose 70 MLS/HR; Start 09/22/16 at 12:00 PEDRO VELASCO MD Sep 22, 2016 14:48
--- NOTE | 2016-09-22 17:52 | CONS ---
Date/Time of Note Date/Time of Note DATE: 09/22/16 TIME: 17:50 Assessment/Plan Assessment/Plan Chief Complaint/Hosp Course 66 yo male with a past medical history of essential hypertension, tracheostomy, who presents with fevers/chills x 3 days. He states that for the last 3 days, he has had cough with productive greenish sputum, blood tinged sputum, and high fevers with muscle/bone pain. He also complains of headaches. He is progressively getting short of breath. Denies any chest pain, loss of consciousness, urinary/bowel irregularities, nausea/vomiting/diarrhea/ constipation, or other constitutional symptoms. He recently came from [facility] in July 2016. Denies any sick contacts. Renal has been consulted for Acute kidney injury vs LELA on CKD Problems: Additional Assessment/Plan 1. Sepsis 2/2 PNA 2. Acute kidney injury vs acute kidney injury on CKD unknown stage - 2/2 ATN From sepsis 3. Essential hypertension on Hydralazine, will add amlodipine 5mg po daily for better BP control 4. Tracheostomy - frequent cleaning renal US showed small kidneys c/w medical renal disease will give IVF D5W 1 liter then reassess in AM Consultation Date/Type/Reason Admit Date/Time Sep 20, 2016 at 20:10 Initial Consult Date 09/21/16 Type of Consultation: NEPHROLOGY Reason for Consultation LELA vs LELA on CKD, Referring Provider: ADELFO ADKINS MD 24 HR Interval Summary Free Text/Dictation Cr went up 2.8, Na trending up Exam/Review of Systems Vital Signs Vitals Vital Signs Date Time Temp Pulse Resp B/P Pulse Ox O2 Delivery O2 Flow Rate FiO2 09/22/16 10:52 98.3 09/22/16 09:03 82 18 133/67 96 09/20/16 21:30 Room Air Intake and Output 09/21/16 09/21/16 09/22/16 15:00 23:00 07:00 Intake Total 790 ml 720 ml Balance 790 ml 720 ml Exam Constitutional: alert Psych: no complaints Head: normocephalic ENMT: nl external ears & nose Respiratory: clear to auscultation, other (decreased BS on both lower lobes ) Cardiovascular: regular rate and rhythm Gastrointestinal: soft Results Result Diagram: 09/22/16 0525 09/22/16 0525 Results 24 hrs Laboratory Tests Test 09/22/16 05:25 Anion Gap 16 Basophils # 0.1 Basophils % 0.7 Blood Urea Nitrogen 22 H Calcium Level 9.2 Carbon Dioxide Level 27 Chloride Level 107 Creatinine 2.81 H Eosinophils # 1.0 H Eosinophils % 14.5 H Glucose Level 92 Hematocrit 32.8 L Hemoglobin 10.8 L Lymphocytes # 1.2 Lymphocytes % 16.7 Magnesium Level 2.3 Mean Corpuscular Hemoglobin 31.1 Mean Corpuscular Hemoglobin Concent 32.9 Mean Corpuscular Volume 94.5 Mean Platelet Volume 8.4 Monocytes # 0.6 Monocytes % 8.1 Neutrophils # 4.2 Neutrophils % 59.6 Nucleated Red Blood Cells # 0.0 Nucleated Red Blood Cells % 0.0 Platelet Count 369 Potassium Level 4.8 Red Blood Count 3.47 L Red Cell Distribution Width 14.9 H Sodium Level 145 H White Blood Count 7.1 Medications Medications Current Medications Lorazepam (Ativan) 0.5 mg Q6H PRN IV ANXIETY; Start 09/20/16 at 20:30 Ondansetron HCl (Zofran Inj) 4 mg Q6H PRN IV NAUSEA AND/OR VOMITING; Start at 20:30 Nitroglycerin (Nitroglycerin (Sl Tab) 0.4 Mg) 1 tab Q5M PRN SL CHEST PAIN; Start 09/20/16 at 20:30 Acetaminophen (Tylenol Tab) 650 mg Q6H PRN PO PAIN LEVEL 1-3 OR FEVER Last administered on 09/21/16 21:21; Admin Dose 650 MG; Start 09/20/16 at 20:30 Morphine Sulfate (morphine) 2 mg Q4H PRN IV PAIN LEVEL 7-10; Start 09/20/16 at 20:30 Docusate Sodium (Colace) 100 mg Q12H PRN PO CONSTIPATION; Start 09/20/16 at 20: 30 Heparin Sodium (Porcine) 5000 unit 5,000 unit Q12 SC Last administered on 09:44; Admin Dose 5,000 UNIT; Start 09/20/16 at 21:00 Piperacillin Sod/ Tazobactam Sod (Zosyn 2.25gm/ 50ml (Pmx)) 50 ml @ 100 mls/hr Q8 IVPB Last administered on 09/22/16 13:51; Admin Dose 100 MLS/HR; Start at 22:00 Hydralazine HCl 10 mg 10 mg Q6H PRN IV sbp > 160; Start 09/20/16 at 20:30 Vancomycin HCl (Vancocin) 250 ml @ 125 mls/hr Q48H IVPB Last administered on 00:29; Admin Dose 125 MLS/HR; Start 09/20/16 at 23:00 Amlodipine Besylate (Norvasc) 5 mg DAILY PO Last administered on 09/22/16 09: 42; Admin Dose 5 MG; Start 09/22/16 at 09:00 Levothyroxine Sodium 100 mcg 100 mcg DAILY@06 PO Last administered on 05:32; Admin Dose 100 MCG; Start 09/22/16 at 06:00 Dextrose (D5W) 1,000 ml @ 70 mls/hr [id number] IV Last administered on 09/22/16 12:21; Admin Dose 70 MLS/HR; Start 09/22/16 at 12:00 Voriconazole (Vfend) 200 mg BID PO ; Start 09/22/16 at 21:00 MASSIMO BRADLEY MD Sep 22, 2016 17:52
--- NOTE | 2016-09-22 19:48 | CONS ---
DATE OF ADMISSION: 09/20/2016 DATE OF CONSULTATION: 09/22/2016 TYPE OF CONSULTATION: Infectious Disease. REASON FOR CONSULTATION: Antibiotic management. HISTORY OF PRESENT ILLNESS: Chase Guzmán is a 66-year-old male with past medical history of a number of problems who comes in with fever and chills for 3 days. Past problems include: 1. Essential hypertension. 2. Tracheostomy. 3. Acute renal failure. He notes that for the last 3 days he has had cough with productive greenish sputum, blood-tinged spu judson, high fever with muscle and bone pain. He complains of headaches and progressive shortness of b reath. The patient recently came from [facility] in 07/2016. Denies any sick contacts. PAST SURGICAL HISTORY: Positive for laryngeal tumor, status post resection with residual tracheosto my. LABORATORY: On admission, his white count was 12.3, H and H 12.4 and 37.5, platelet count 434,000. BUN and creatinine 30 over 2.68. PHYSICAL EXAMINATION: GENERAL: The patient is a chronically ill-appearing male who is in mild to moderate distress. VITAL SIGNS: Stable. He is afebrile. SKIN: Without generalized rash. HEENT: Within normal limits. NECK: Supple. Tracheostomy in place. He has some purulent greenish sputum. LYMPH NODES: None palpable. CHEST: Decreased breath sounds at the bases with scattered rhonchi. HEART: Without murmur or gallop. ABDOMEN: Soft, nontender without organosplenomegaly or masses. EXTREMITIES: Without cyanosis, clubbing or edema. He has trace bilateral lower extremity edema. RECTAL AND GENITAL: Deferred. NEUROLOGIC: No focal neurological abnormalities. IMAGING: Chest x-ray shows dense infiltration in the left upper lung with pleural thickening and sc arring and architectural distortion. A CT scan of the chest shows complete cicatricial atelectasis of left upper lobe with traction bronchiectasis and associated volume loss with a leftward mediastin al shift, presumably sequelae of prior granulomatous infection. There may be a fungal ball or mycet charo with an area of cavitation within the consolidated left upper lobe. Scattered nodular opacities in conjunction with areas of exudate of inflammatory airway changes are concerning for superimposed acute granuloma ____ infection such as fungus and microbacteria. Consider correlation with broncho scopy and bronchoalveolar lavage. HOSPITAL COURSE: The patient was admitted with cough, fever, chills, community-acquired pneumonia, history of laryngeal CA, chronic-appearing fibrocavitary changes in left upper lobe with possibility of mycetoma. Continue antifungal treatment, obtain Aspergillus antibodies as well as sputum for fu ngal stain ____ pulmonary evaluation, possible aspergilloma. The patient was placed on vancomycin a nd Zosyn, also on fluconazole. He may do better with voriconazole. His blood cultures are negative . Urine cultures are negative. Acid fast is pending. I think we will change him either to caspofungin or to voriconazole 200 mg q.12. I think bronchosco py and bronchopulmonary lavage would be a good approach. I will dictate my findings to the hospital ist. Dictated By: NGA TAM MD, JD/VINEET Conf#: [id number] DID#: [id number]
[2016-09-22 21:22] VITALS: BP 155/78; RESP 88
[2016-09-22] MEDS: VORICONAZOLE 200 MG TAB PO SCH (22:01)
[2016-09-22] MEDS: ACETAMINOPHEN 325 MG TAB PO PRN (22:14)
[2016-09-22] MEDS: VANCOMYCIN 1 GM in NS 250 ML IVPB SCH (23:20)
[2016-09-23] MEDS: DEXTROSE 5% 1,000 ML IV SCH (02:18)
[2016-09-23] MEDS: PIPER-TAZO 2.25 GM (PMX) 50 ML IVPB SCH (05:48)
[2016-09-23] MEDS: LEVOTHYROXINE 100 MCG TAB PO SCH (05:48)
[2016-09-23 06:12] LABS: POTASSIUM 4.8 mmol/L (3.5-5.1)
[2016-09-23 06:14] LABS: CREATININE 2.61 mg/dl (0.61-1.24)
[2016-09-23 06:15] LABS: CALCIUM 9.2 mg/dl (8.4-10.2)
[2016-09-23 07:41] VITALS: BP 150/72; RESP 18
[2016-09-23] MEDS: VORICONAZOLE 200 MG TAB PO SCH ×2 (09:07→21:11)
[2016-09-23] MEDS: HEPARIN 5,000 UNIT/0.5 ML SYG SC SCH ×2 (09:07→21:11)
[2016-09-23] MEDS: AMLODIPINE 5 MG TAB PO SCH (09:07)
--- NOTE | 2016-09-23 09:25 | CONS ---
Date/Time of Note Date/Time of Note DATE: 09/23/16 TIME: 09:22 Assessment/Plan Assessment/Plan Additional Assessment/Plan 66 yo male with a past medical history of essential hypertension, tracheostomy, who presents with fevers/chills x 3 days. He states that for the last 3 days, he has had cough with productive greenish sputum, blood tinged sputum, and high fevers with muscle/bone pain. He also complains of headaches. He is progressively getting short of breath. Denies any chest pain, loss of consciousness, urinary/bowel irregularities, nausea/vomiting/diarrhea/ constipation, or other constitutional symptoms. He recently came from [facility] in July 2016. Denies any sick contacts. Renal has been consulted for Acute kidney injury vs LELA on CKD 1. Sepsis 2/2 PNA 2. Acute kidney injury vs acute kidney injury on CKD unknown stage - 2/2 ATN From sepsis 3. Essential hypertension on Hydralazine, on amlodipine 5mg po daily for better BP control 4. Tracheostomy - frequent cleaning renal US showed small kidneys c/w medical renal disease ,sputum AFB sent Cr slightly improved with IVF D5 W, will give another 1 liter of D5W today will follow up Consultation Date/Type/Reason Admit Date/Time Sep 20, 2016 at 20:10 Initial Consult Date 09/21/16 Type of Consultation: NEPHROLOGY Reason for Consultation acute kidney injury, hypernatremia Referring Provider: ADELFO ADKINS MD 24 HR Interval Summary Free Text/Dictation Cr slightly improved, on IVF D5W Exam/Review of Systems Vital Signs Vitals Vital Signs Date Time Temp Pulse Resp B/P Pulse Ox O2 Delivery O2 Flow Rate FiO2 09/23/16 07:41 98.7 85 18 150/72 100 09/20/16 21:30 Room Air Intake and Output 09/22/16 09/22/16 09/23/16 15:00 23:00 07:00 Intake Total 1860 ml 1080 ml Balance 1860 ml 1080 ml Exam Constitutional: alert Psych: no complaints Head: normocephalic ENMT: nl external ears & nose Respiratory: clear to auscultation, other (decreased BS on both lower lobes ) Cardiovascular: regular rate and rhythm Gastrointestinal: soft Results Result Diagram: 09/22/16 0525 09/23/16 0502 Results 24 hrs Laboratory Tests Test 09/23/16 05:02 Anion Gap 17 H Blood Urea Nitrogen 18 Calcium Level 9.2 Carbon Dioxide Level 26 Chloride Level 106 Creatinine 2.61 H Glucose Level 102 Potassium Level 4.8 Sodium Level 144 Medications Medications Current Medications Lorazepam (Ativan) 0.5 mg Q6H PRN IV ANXIETY; Start 09/20/16 at 20:30 Ondansetron HCl (Zofran Inj) 4 mg Q6H PRN IV NAUSEA AND/OR VOMITING; Start at 20:30 Nitroglycerin (Nitroglycerin (Sl Tab) 0.4 Mg) 1 tab Q5M PRN SL CHEST PAIN; Start 09/20/16 at 20:30 Acetaminophen (Tylenol Tab) 650 mg Q6H PRN PO PAIN LEVEL 1-3 OR FEVER Last administered on 09/22/16 22:14; Admin Dose 650 MG; Start 09/20/16 at 20:30 Morphine Sulfate (morphine) 2 mg Q4H PRN IV PAIN LEVEL 7-10; Start 09/20/16 at 20:30 Docusate Sodium (Colace) 100 mg Q12H PRN PO CONSTIPATION; Start 09/20/16 at 20: 30 Heparin Sodium (Porcine) 5000 unit 5,000 unit Q12 SC Last administered on 09:07; Admin Dose 5,000 UNIT; Start 09/20/16 at 21:00 Piperacillin Sod/ Tazobactam Sod (Zosyn 2.25gm/ 50ml (Pmx)) 50 ml @ 100 mls/hr Q8 IVPB Last administered on 09/23/16 05:48; Admin Dose 100 MLS/HR; Start at 22:00 Hydralazine HCl 10 mg 10 mg Q6H PRN IV sbp > 160; Start 09/20/16 at 20:30 Vancomycin HCl (Vancocin) 250 ml @ 125 mls/hr Q48H IVPB Last administered on 23:20; Admin Dose 125 MLS/HR; Start 09/20/16 at 23:00 Amlodipine Besylate (Norvasc) 5 mg DAILY PO Last administered on 09/23/16 09: 07; Admin Dose 5 MG; Start 09/22/16 at 09:00 Levothyroxine Sodium 100 mcg 100 mcg DAILY@06 PO Last administered on 05:48; Admin Dose 100 MCG; Start 09/22/16 at 06:00 Dextrose (D5W) 1,000 ml @ 70 mls/hr [id number] IV Last administered on 09/22/16 12:21; Admin Dose 70 MLS/HR; Start 09/22/16 at 12:00 Voriconazole (Vfend) 200 mg BID PO Last administered on 09/23/16 09:07; Admin Dose 200 MG; Start 09/22/16 at 21:00 MASSIMO BRADLEY MD Sep 23, 2016 09:25
[2016-09-23] MEDS ORDERED: DEXTROSE 5% 1,000 ML IV SCH (10:00)
--- NOTE | 2016-09-23 12:53 | PN ---
DATE: 09/23/2016 SUBJECTIVE: Patient is alert, lying comfortably in bed, afebrile. Denies pain, no fevers today. N o CBC this morning. BUN 18, creatinine 2.61. MICROBIOLOGY: Blood and urine cultures remain negative. Influenza swab negative. Sputum for AFB w as negative for 2 sets antimicrobials. Patient is on: 1. Voriconazole. 2. Vancomycin. 3. Zosyn. PHYSICAL EXAMINATION: GENERAL: This is a cachectic elderly man who is alert, in no distress. HEENT: Head atraumatic, normocephalic. Sclerae anicteric. Buccal mucosa pink, dry. NECK: Supple, trachea midline. CHEST: Rise symmetrical. Breath sounds diminished to bases. HEART: S1, S2. ABDOMEN: Soft. Bowel tones present. EXTREMITIES: Without cyanosis. ASSESSMENT: 1. Pneumonia with a questionable mycetoma with an area of cavitation in the left upper lobe as per CT of the chest. 2. Emphysema. 3. Acute on chronic kidney disease. 4. Hypertension. 5. History of laryngeal cancer. PLAN: The patient is being followed by pulmonary and nephrology teams, pending third AFB, pending serology for aspergillosis. We are going to change vancomycin and Zosyn to Levaquin, keep him on Vo riconazole and await for final workup. Dictated By: SHEYLA RICHARDSON SCOUT SNIPER for NGA GOODE/VINEET Conf#: [id number] DID#: [id number]
[2016-09-23] MEDS: LEVOFLOXACIN 500MG/D5W (PMX) 100 ML IVPB SCH (13:41)
--- NOTE | 2016-09-23 14:13 | CONS ---
Date/Time of Note Date/Time of Note DATE: 09/23/16 TIME: 14:09 Assessment/Plan Assessment/Plan Additional Assessment/Plan Assessment and recommendations; 1. Patient admitted with acute bronchitis and left upper lobe fibrocavitary changes discovered on CT imaging of the chest with what appears to be a mycetoma and 1 of the cavities. 2. Remote history of laryngectomy due to laryngeal cancer status post tracheostomy. 3. Significant clinical improvement on current antibiotic regimen. Patient switched over to voriconazole. Continue current treatment for now patient responding well. Will await fungal serology as well as sputum fungal stain. Currently I do not see an indication for bronchoscopy. Consultation Date/Type/Reason Admit Date/Time Sep 20, 2016 at 20:10 Initial Consult Date 09/21/16 Type of Consultation: Pulmonary Referring Provider: ADELFO ADKINS MD 24 HR Interval Summary Free Text/Dictation Patient is doing very well. With significant reduction in sputum production. Denies any shortness of breath. Any chest pain. Any wheezing. General examination; elderly male, currently in no distress. Awake and alert. Patient is aphasic on account of laryngectomy. Exam/Review of Systems Vital Signs Vitals Vital Signs Date Time Temp Pulse Resp B/P Pulse Ox O2 Delivery O2 Flow Rate FiO2 09/23/16 07:41 98.7 85 18 150/72 100 09/20/16 21:30 Room Air Intake and Output 09/22/16 09/22/16 09/23/16 15:00 23:00 07:00 Intake Total 1860 ml 1080 ml Balance 1860 ml 1080 ml Exam HEENT examination; supple neck, no JVD. No lymphadenopathy. Midline trachea. Patient is edentulous. Tracheostomy in place. Chest examination; diminished but clear breath sounds bilaterally. S1-S2 audible, no murmurs. Regular rhythm. Abdomen examination; soft, nontender. Bowel sounds audible. No organomegaly. Extremity examination; no peripheral edema. Pulses 1+ bilaterally. DIRECTOR CLIENT SERVICES examination; no focal deficit. Results Result Diagram: 09/22/16 0525 09/23/16 0502 Results 24 hrs Laboratory Tests Test 09/23/16 05:02 Anion Gap 17 H Blood Urea Nitrogen 18 Calcium Level 9.2 Carbon Dioxide Level 26 Chloride Level 106 Creatinine 2.61 H Glucose Level 102 Potassium Level 4.8 Sodium Level 144 Medications Medications Current Medications Lorazepam (Ativan) 0.5 mg Q6H PRN IV ANXIETY; Start 09/20/16 at 20:30 Ondansetron HCl (Zofran Inj) 4 mg Q6H PRN IV NAUSEA AND/OR VOMITING; Start at 20:30 Nitroglycerin (Nitroglycerin (Sl Tab) 0.4 Mg) 1 tab Q5M PRN SL CHEST PAIN; Start 09/20/16 at 20:30 Acetaminophen (Tylenol Tab) 650 mg Q6H PRN PO PAIN LEVEL 1-3 OR FEVER Last administered on 09/22/16 22:14; Admin Dose 650 MG; Start 09/20/16 at 20:30 Morphine Sulfate (morphine) 2 mg Q4H PRN IV PAIN LEVEL 7-10; Start 09/20/16 at 20:30 Docusate Sodium (Colace) 100 mg Q12H PRN PO CONSTIPATION; Start 09/20/16 at 20: 30 Heparin Sodium (Porcine) (Heparin (5000 Units/0.5 ml)) 5,000 unit Q12 SC Last administered on 09/23/16 09:07; Admin Dose 5,000 UNIT; Start 09/20/16 at 21:00 Hydralazine HCl (Apresoline) 10 mg Q6H PRN IV sbp > 160; Start 09/20/16 at 20: 30 Amlodipine Besylate (Norvasc) 5 mg DAILY PO Last administered on 09/23/16 09: 07; Admin Dose 5 MG; Start 09/22/16 at 09:00 Levothyroxine Sodium (Synthroid) 100 mcg DAILY@06 PO Last administered on 05:48; Admin Dose 100 MCG; Start 09/22/16 at 06:00 Voriconazole 200 mg 200 mg BID PO Last administered on 09/23/16 09:07; Admin Dose 200 MG; Start 09/22/16 at 21:00 Dextrose 1,000 ml @ 70 mls/hr [id number] IV Last administered on 09/23/16 09:49 ; Admin Dose 70 MLS/HR; Start 09/23/16 at 10:00; Stop 09/24/16 at 00:17 Levofloxacin/ Dextrose (Levaquin 500mg/ D5W 100 ml (Pmx)) 100 ml @ 100 mls/hr Q48H IVPB Last administered on 09/23/16t 13:41; Admin Dose 100 MLS/HR; Start at 13:00 KRYSTAL PRADO Sep 23, 2016 14:13
--- NOTE | 2016-09-23 14:25 | PN ---
Date/Time of Note Date/Time of Note DATE: 09/23/16 TIME: 14:22 Assessment/Plan VTE Prophylaxis VTE Prophylaxis Intervention: heparin Lines/Catheters IV [facility] Type [facility]from [facility] Assessment/Plan Assessment/Plan 1. COPD exacerbation and acute bronchitis. stable 2. History of laryngectomy. 3. Chronic appearing left upper lobe fibrocavitary changes with appearance of mycetoma in 1 of the cavities. awaiting for serology for aspergillus and 3rd AFB 4. HTN, controlled 5. Hypothyroidism, on supplement 6. DVT prophylaxis: heparin Subjective 24 Hr Interval Summary Free Text/Dictation no event. No shortness of breath. afebrile Exam/Review of Systems Vital Signs Vitals Vital Signs Date Time Temp Pulse Resp B/P Pulse Ox O2 Delivery O2 Flow Rate FiO2 09/23/16 07:41 98.7 85 18 150/72 100 09/20/16 21:30 Room Air Intake and Output 09/22/16 09/22/16 09/23/16 15:00 23:00 07:00 Intake Total 1860 ml 1080 ml Balance 1860 ml 1080 ml Exam Constitutional: alert, oriented, well developed Psych: nl mood/affect, no complaints Head: atraumatic, normocephalic Eyes: EOMI, PERRL, nl conjunctiva, nl lids ENMT: nl external ears & nose, nl lips & teeth, nl nasal mucosa & septum Neck: supple Respiratory: clear to auscultation, normal air movement, No congested cough, No crackles/rales, No diminished breath sounds, No intercostal retraction, No labored breathing, No other, No respirations, No tactile fremitus, No wheezing Cardiovascular: nl pulses, regular rate and rhythm, No S3, No S4, No bruits, No diastolic murmur, No edema, No gallop, No irregular rhythm, No jugular venous distention (JVD), No murmurs/extra sounds, No other, No rub, No systolic murmur Gastrointestinal: nl liver, spleen, non-tender, soft, No ascites, No bowel sounds, No distended, No firm, No hepatomegaly, No mass , No other, No rebound or guarding, No splenomegaly, No surgical scars, No tender Musculoskeletal: nl extremities to inspection Extremities: normal pulses, No calf tenderness, No clubbing, No cyanosis, No edema, No other, No palpable cord, No pitting pedal edema, No tenderness Neurological: BRICK HANDLER II-XII intact, nl mental status, nl speech, nl strength Results Result Diagram: 09/22/16 0525 09/23/16 0502 Results 24 hrs Laboratory Tests Test 09/23/16 05:02 Anion Gap 17 H Blood Urea Nitrogen 18 Calcium Level 9.2 Carbon Dioxide Level 26 Chloride Level 106 Creatinine 2.61 H Glucose Level 102 Potassium Level 4.8 Sodium Level 144 Medications Medications Current Medications Lorazepam (Ativan) 0.5 mg Q6H PRN IV ANXIETY; Start 09/20/16 at 20:30 Ondansetron HCl (Zofran Inj) 4 mg Q6H PRN IV NAUSEA AND/OR VOMITING; Start at 20:30 Nitroglycerin (Nitroglycerin (Sl Tab) 0.4 Mg) 1 tab Q5M PRN SL CHEST PAIN; Start 09/20/16 at 20:30 Acetaminophen (Tylenol Tab) 650 mg Q6H PRN PO PAIN LEVEL 1-3 OR FEVER Last administered on 09/22/16 22:14; Admin Dose 650 MG; Start 09/20/16 at 20:30 Morphine Sulfate (morphine) 2 mg Q4H PRN IV PAIN LEVEL 7-10; Start 09/20/16 at 20:30 Docusate Sodium (Colace) 100 mg Q12H PRN PO CONSTIPATION; Start 09/20/16 at 20: 30 Heparin Sodium (Porcine) (Heparin (5000 Units/0.5 ml)) 5,000 unit Q12 SC Last administered on 09/23/16 09:07; Admin Dose 5,000 UNIT; Start 09/20/16 at 21:00 Hydralazine HCl (Apresoline) 10 mg Q6H PRN IV sbp > 160; Start 09/20/16 at 20: 30 Amlodipine Besylate (Norvasc) 5 mg DAILY PO Last administered on 09/23/16 09: 07; Admin Dose 5 MG; Start 09/22/16 at 09:00 Levothyroxine Sodium (Synthroid) 100 mcg DAILY@06 PO Last administered on 05:48; Admin Dose 100 MCG; Start 09/22/16 at 06:00 Voriconazole 200 mg 200 mg BID PO Last administered on 09/23/16 09:07; Admin Dose 200 MG; Start 09/22/16 at 21:00 Dextrose 1,000 ml @ 70 mls/hr [id number] IV Last administered on 09/23/16 09:49 ; Admin Dose 70 MLS/HR; Start 09/23/16 at 10:00; Stop 09/24/16 at 00:17 Levofloxacin/ Dextrose (Levaquin 500mg/ D5W 100 ml (Pmx)) 100 ml @ 100 mls/hr Q48H IVPB Last administered on 09/23/16 13:41; Admin Dose 100 MLS/HR; Start at 13:00 PEDRO VELASCO MD Sep 23, 2016 14:24
[2016-09-23 16:10] LABS: TB-NIL 0.58 IU/mL
[2016-09-23 19:32] VITALS: BP 142/69; RESP 18
[2016-09-23] MEDS: ACETAMINOPHEN 325 MG TAB PO PRN (23:23)
[2016-09-24] MEDS: LEVOTHYROXINE 100 MCG TAB PO SCH (05:11)
[2016-09-24 07:24] VITALS: BP 155/69; RESP 18
[2016-09-24] MEDS: HEPARIN 5,000 UNIT/0.5 ML SYG SC SCH ×2 (10:26→20:23)
[2016-09-24] MEDS: VORICONAZOLE 200 MG TAB PO SCH ×2 (10:26→20:23)
[2016-09-24] MEDS: AMLODIPINE 5 MG TAB PO SCH (10:26)
--- NOTE | 2016-09-24 11:32 | PN ---
DATE: 09/24/2016 SUBJECTIVE: The patient has remained stable, no events overnight, no hemoptysis, hematemesis. Denie s any shortness of breath, still pending final AFB to rule out TB. PHYSICAL EXAMINATION: VITAL SIGNS: Temperature 98, pulse 93, blood pressure 155/69, O2 saturation 96% on room air. NECK: Supple. No JVD or lymphadenopathy. CARDIAC: S1, S2, no added sounds or murmurs. CHEST: Diminished air entry bilaterally. ABDOMEN: Soft, nontender. No guarding or rebound. EXTREMITIES: No cyanosis, clubbing, edema. NEUROLOGIC: No focal deficits. LABORATORY DATA: White count 7.1, hemoglobin 10.8, platelets of 369. Chemistry within normal limit s except for BUN 18, creatinine 2.61. INR 1.14. IMPRESSION AND PLAN: 1. Chronic cavitary lung disease with mycetoma. 2. Acute bronchitis. 3. Rule out tuberculosis. 4. History of laryngectomy and laryngeal CA. PLAN: 1. Continue antibiotics per infectious diseases. 2. Continue bronchodilators. 3. Continue supplemental O2. 4. Pending third, AFB and aspergillosis serology. Dictated By: ALEXANDRA JOHNSTON/VINEET Conf#: [id number] DID#: [id number]
--- NOTE | 2016-09-24 11:34 | PN ---
Date/Time of Note Date/Time of Note DATE: 09/24/16 TIME: 11:30 Assessment/Plan VTE Prophylaxis VTE Prophylaxis Intervention: heparin Lines/Catheters IV Catheter Type (from Nrs): Peripheral IV Assessment/Plan Assessment/Plan 1. COPD exacerbation and acute bronchitis. stable 2. History of laryngectomy. 3. Chronic appearing left upper lobe fibrocavitary changes with appearance of mycetoma in 1 of the cavities. negative AFBx3, positive QFT awaiting for serology for aspergillus, follow up with ID 4. HTN, controlled 5. Hypothyroidism, on supplement 6. DVT prophylaxis: heparin Subjective 24 Hr Interval Summary Free Text/Dictation no respiratory distress Exam/Review of Systems Vital Signs Vitals Vital Signs Date Time Temp Pulse Resp B/P Pulse Ox O2 Delivery O2 Flow Rate FiO2 09/24/16 07:24 98.8 93 18 155/69 100 09/20/16 21:30 Room Air Intake and Output 09/23/16 09/23/16 09/24/16 15:00 23:00 07:00 Intake Total 2040 ml 1680 ml Balance 2040 ml 1680 ml Exam Constitutional: alert, oriented, well developed Psych: nl mood/affect, no complaints Head: atraumatic, normocephalic Eyes: EOMI, PERRL, nl conjunctiva, nl lids, nl sclera ENMT: nl external ears & nose, nl lips & teeth, nl nasal mucosa & septum Neck: non-tender, supple Respiratory: clear to auscultation, normal air movement, No congested cough, No crackles/rales, No diminished breath sounds, No intercostal retraction, No labored breathing, No other, No respirations, No tactile fremitus, No wheezing Cardiovascular: nl pulses, regular rate and rhythm, No S3, No S4, No bruits, No diastolic murmur, No edema, No gallop, No irregular rhythm, No jugular venous distention (JVD), No murmurs/extra sounds, No other, No rub, No systolic murmur Gastrointestinal: nl liver, spleen, non-tender, soft, No ascites, No bowel sounds, No distended, No firm, No hepatomegaly, No mass , No other, No rebound or guarding, No splenomegaly, No surgical scars, No tender Musculoskeletal: nl extremities to inspection Extremities: normal pulses, No calf tenderness, No clubbing, No cyanosis, No edema, No other, No palpable cord, No pitting pedal edema, No tenderness Neurological: KEYBOARD OPERATOR II-XII intact, nl mental status, nl speech, nl strength Skin: nl turgor Lymph: nl lymph nodes Results Result Diagram: 09/22/16 0525 09/23/16 0502 Medications Medications Current Medications Lorazepam (Ativan) 0.5 mg Q6H PRN IV ANXIETY; Start 09/20/16 at 20:30 Ondansetron HCl (Zofran Inj) 4 mg Q6H PRN IV NAUSEA AND/OR VOMITING; Start at 20:30 Nitroglycerin (Nitroglycerin (Sl Tab) 0.4 Mg) 1 tab Q5M PRN SL CHEST PAIN; Start 09/20/16 at 20:30 Acetaminophen (Tylenol Tab) 650 mg Q6H PRN PO PAIN LEVEL 1-3 OR FEVER Last administered on 09/23/16 23:23; Admin Dose 650 MG; Start 09/20/16 at 20:30 Morphine Sulfate (morphine) 2 mg Q4H PRN IV PAIN LEVEL 7-10; Start 09/20/16 at 20:30 Docusate Sodium (Colace) 100 mg Q12H PRN PO CONSTIPATION; Start 09/20/16 at 20: 30 Heparin Sodium (Porcine) (Heparin (5000 Units/0.5 ml)) 5,000 unit Q12 SC Last administered on 09/24/16 10:26; Admin Dose 5,000 UNIT; Start 09/20/16 at 21:00 Hydralazine HCl (Apresoline) 10 mg Q6H PRN IV sbp > 160; Start 09/20/16 at 20: 30 Amlodipine Besylate (Norvasc) 5 mg DAILY PO Last administered on 09/24/16 10:26 ; Admin Dose 5 MG; Start 09/22/16 at 09:00 Levothyroxine Sodium (Synthroid) 100 mcg DAILY@06 PO Last administered on 05:11; Admin Dose 100 MCG; Start 09/22/16 at 06:00 Voriconazole 200 mg 200 mg BID PO Last administered on 09/24/16 10:26; Admin Dose 200 MG; Start 09/22/16 at 21:00 Levofloxacin/ Dextrose (Levaquin 500mg/ D5W 100 ml (Pmx)) 100 ml @ 100 mls/hr Q48H IVPB Last administered on 09/23/16t 13:41; Admin Dose 100 MLS/HR; Start at 13:00 PEDRO VELASCO MD Sep 24, 2016 11:34
--- NOTE | 2016-09-24 12:04 | CONS ---
Date/Time of Note Date/Time of Note DATE: 09/24/16 TIME: 12:03 Assessment/Plan Assessment/Plan Additional Assessment/Plan 66 yo male with a past medical history of essential hypertension, tracheostomy, who presents with fevers/chills x 3 days. He states that for the last 3 days, he has had cough with productive greenish sputum, blood tinged sputum, and high fevers with muscle/bone pain. He also complains of headaches. He is progressively getting short of breath. Denies any chest pain, loss of consciousness, urinary/bowel irregularities, nausea/vomiting/diarrhea/ constipation, or other constitutional symptoms. He recently came from [facility] in July 2016. Denies any sick contacts. Renal has been consulted for Acute kidney injury vs LELA on CKD 1. Sepsis 2/2 PNA 2. Acute kidney injury vs acute kidney injury on CKD unknown stage - 2/2 ATN From sepsis 3. Essential hypertension on Hydralazine, on amlodipine 5mg po daily for better BP control 4. Tracheostomy - frequent cleaning renal US showed small kidneys c/w medical renal disease ,sputum AFB sent S/p 2 liter of D5 W in last two day, no more IVF today, Cr improved to 2.61 yesterday, no labs today to review, BP stable, will order AM labs for tomorrow will follow up Consultation Date/Type/Reason Admit Date/Time Sep 20, 2016 at 20:10 Initial Consult Date 09/21/16 Type of Consultation: NEPHROLOGY Referring Provider: ADELFO ADKINS MD 24 HR Interval Summary Free Text/Dictation Cr slightly improved to 2.6 yesterday, S/p one more liter of D5 W yesterday, No labs today, on TB isolation Exam/Review of Systems Vital Signs Vitals Vital Signs Date Time Temp Pulse Resp B/P Pulse Ox O2 Delivery O2 Flow Rate FiO2 09/24/16 07:24 98.8 93 18 155/69 100 09/20/16 21:30 Room Air Intake and Output 09/23/16 09/23/16 09/24/16 15:00 23:00 07:00 Intake Total 2040 ml 1680 ml Balance 2040 ml 1680 ml Exam Constitutional: alert Psych: no complaints Head: normocephalic ENMT: nl external ears & nose Respiratory: clear to auscultation, other (decreased BS on both lower lobes ) Cardiovascular: regular rate and rhythm Gastrointestinal: soft Results Result Diagram: 09/22/16 0525 09/23/16 0502 Medications Medications Current Medications Lorazepam (Ativan) 0.5 mg Q6H PRN IV ANXIETY; Start 09/20/16 at 20:30 Ondansetron HCl (Zofran Inj) 4 mg Q6H PRN IV NAUSEA AND/OR VOMITING; Start at 20:30 Nitroglycerin (Nitroglycerin (Sl Tab) 0.4 Mg) 1 tab Q5M PRN SL CHEST PAIN; Start 09/20/16 at 20:30 Acetaminophen (Tylenol Tab) 650 mg Q6H PRN PO PAIN LEVEL 1-3 OR FEVER Last administered on 09/23/16 23:23; Admin Dose 650 MG; Start 09/20/16 at 20:30 Morphine Sulfate (morphine) 2 mg Q4H PRN IV PAIN LEVEL 7-10; Start 09/20/16 at 20:30 Docusate Sodium (Colace) 100 mg Q12H PRN PO CONSTIPATION; Start 09/20/16 at 20: 30 Heparin Sodium (Porcine) (Heparin (5000 Units/0.5 ml)) 5,000 unit Q12 SC Last administered on 09/24/16 10:26; Admin Dose 5,000 UNIT; Start 09/20/16 at 21:00 Hydralazine HCl (Apresoline) 10 mg Q6H PRN IV sbp > 160; Start 09/20/16 at 20: 30 Amlodipine Besylate (Norvasc) 5 mg DAILY PO Last administered on 09/24/16 10:26 ; Admin Dose 5 MG; Start 09/22/16 at 09:00 Levothyroxine Sodium (Synthroid) 100 mcg DAILY@06 PO Last administered on 05:11; Admin Dose 100 MCG; Start 09/22/16 at 06:00 Voriconazole 200 mg 200 mg BID PO Last administered on 09/24/16 10:26; Admin Dose 200 MG; Start 09/22/16 at 21:00 Levofloxacin/ Dextrose (Levaquin 500mg/ D5W 100 ml (Pmx)) 100 ml @ 100 mls/hr Q48H IVPB Last administered on 09/23/16 13:41; Admin Dose 100 MLS/HR; Start at 13:00 MASSIMO BRADLEY MD Sep 24, 2016 12:04
--- NOTE | 2016-09-24 15:21 | CONS ---
Date/Time of Note Date/Time of Note DATE: 09/24/16 TIME: 15:20 Assessment/Plan Assessment/Plan Chief Complaint/Hosp Course SUBJECTIVE: Patient is alert, lying comfortably in bed, afebrile. Denies pain , no fevers today. MICROBIOLOGY: Blood and urine cultures remain negative. Influenza swab negative. Sputum for AFB was negative for 2 sets antimicrobials. Patient is on : 1. Voriconazole. 2. Levaquin PHYSICAL EXAMINATION: GENERAL: This is a cachectic elderly man who is alert, in no distress. HEENT: Head atraumatic, normocephalic. Sclerae anicteric. Buccal mucosa pink , dry. NECK: Supple, trachea midline. CHEST: Rise symmetrical. Breath sounds diminished to bases. HEART: S1, S2. ABDOMEN: Soft. Bowel tones present. EXTREMITIES: Without cyanosis. ASSESSMENT: 1. Pneumonia with a questionable mycetoma with an area of cavitation in the left upper lobe as per CT of the chest. 2. Emphysema. 3. Acute on chronic kidney disease. 4. Hypertension. 5. History of laryngeal cancer. PLAN: The patient is being followed by pulmonary and nephrology teams, pending third AFB, pending serology for aspergillosis. Continue abx [facility] staff Problems: Consultation Date/Type/Reason Admit Date/Time Sep 20, 2016 at 20:10 Initial Consult Date 09/21/16 Type of Consultation: ID Referring Provider: ADELFO ADKINS MD Exam/Review of Systems Vital Signs Vitals Vital Signs Date Time Temp Pulse Resp B/P Pulse Ox O2 Delivery O2 Flow Rate FiO2 09/24/16 07:24 98.8 93 18 155/69 100 09/20/16 21:30 Room Air Intake and Output 09/23/16 09/23/16 09/24/16 15:00 23:00 07:00 Intake Total 2040 ml 1680 ml Balance 2040 ml 1680 ml Results Result Diagram: 09/22/16 0525 09/23/16 0502 Medications Medications Current Medications Lorazepam (Ativan) 0.5 mg Q6H PRN IV ANXIETY; Start 09/20/16 at 20:30 Ondansetron HCl (Zofran Inj) 4 mg Q6H PRN IV NAUSEA AND/OR VOMITING; Start at 20:30 Nitroglycerin (Nitroglycerin (Sl Tab) 0.4 Mg) 1 tab Q5M PRN SL CHEST PAIN; Start 09/20/16 at 20:30 Acetaminophen (Tylenol Tab) 650 mg Q6H PRN PO PAIN LEVEL 1-3 OR FEVER Last administered on 09/23/16 23:23; Admin Dose 650 MG; Start 09/20/16 at 20:30 Morphine Sulfate (morphine) 2 mg Q4H PRN IV PAIN LEVEL 7-10; Start 09/20/16 at 20:30 Docusate Sodium (Colace) 100 mg Q12H PRN PO CONSTIPATION; Start 09/20/16 at 20: 30 Heparin Sodium (Porcine) (Heparin (5000 Units/0.5 ml)) 5,000 unit Q12 SC Last administered on 09/24/16 10:26; Admin Dose 5,000 UNIT; Start 09/20/16 at 21:00 Hydralazine HCl (Apresoline) 10 mg Q6H PRN IV sbp > 160; Start 09/20/16 at 20: 30 Amlodipine Besylate (Norvasc) 5 mg DAILY PO Last administered on 09/24/16 10:26 ; Admin Dose 5 MG; Start 09/22/16 at 09:00 Levothyroxine Sodium (Synthroid) 100 mcg DAILY@06 PO Last administered on 05:11; Admin Dose 100 MCG; Start 09/22/16 at 06:00 Voriconazole 200 mg 200 mg BID PO Last administered on 09/24/16 10:26; Admin Dose 200 MG; Start 09/22/16 at 21:00 Levofloxacin/ Dextrose (Levaquin 500mg/ D5W 100 ml (Pmx)) 100 ml @ 100 mls/hr Q48H IVPB Last administered on 09/23/16 13:41; Admin Dose 100 MLS/HR; Start at 13:00 SHEYLA RICHARDSON NP Sep 24, 2016 15:21
[2016-09-24 20:10] VITALS: BP 133/66; RESP 20
[2016-09-25] MEDS: LEVOTHYROXINE 100 MCG TAB PO SCH (05:06)
[2016-09-25 05:35] LABS: ADD SCAN DIFF NO
[2016-09-25 06:03] LABS: INR 1.01; PARTIAL THROMBOPLASTIN TIME 36.6 Sec (25.0-35.0); PROTIME 13.3 Sec (12.2-14.2)
[2016-09-25 06:08] LABS: POTASSIUM 5.8 mmol/L (3.5-5.1)
[2016-09-25 06:10] LABS: BASOPHIL # 0.1 10^3/ul (0.0-0.1); CREATININE 2.97 mg/dl (0.61-1.24); EOSINOPHILS # 0.6 10^3/ul (0.0-0.5); EOSINOPHILS % 10.1 % (0.0-7.0); HEMATOCRIT 35.4 % (42.0-52.0); HEMOGLOBIN 11.3 g/dl (14.0-18.0); LYMPHOCYTES # 1.6 10^3/ul (0.8-2.9); LYMPHOCYTES % 25.5 % (15.0-51.0); MEAN CORPUSCULAR HEMOGLOBIN 30.3 pg (29.0-33.0); MEAN CORPUSCULAR HGB CONC 31.9 g/dl (32.0-37.0); MEAN CORPUSCULAR VOLUME 94.9 fl (82.0-101.0); MEAN PLATELET VOLUME 8.3 fl (7.4-10.4); MONOCYTE # 0.5 10^3/ul (0.3-0.9); MONOCYTES % 8.6 % (0.0-11.0); NEUTROPHIL # 3.3 10^3/ul (1.6-7.5); NEUTROPHILS % 52.7 % (39.0-77.0); PLATELET COUNT 452 10^3/UL (140-415); RED BLOOD COUNT 3.73 10^6/ul (4.70-6.10); RED CELL DISTRIBUTION WIDTH 14.9 % (11.5-14.5); WHITE BLOOD COUNT 6.3 10^3/ul (4.8-10.8)
[2016-09-25 06:11] LABS: CALCIUM 9.4 mg/dl (8.4-10.2)
[2016-09-25 08:08] VITALS: BP 127/72; RESP 20
[2016-09-25] MEDS: VORICONAZOLE 200 MG TAB PO SCH (08:09)
[2016-09-25] MEDS: AMLODIPINE 5 MG TAB PO SCH (08:09)
[2016-09-25] MEDS: HEPARIN 5,000 UNIT/0.5 ML SYG SC SCH (08:11)
[2016-09-25] MEDS: ACETAMINOPHEN 325 MG TAB PO PRN (08:17)
--- NOTE | 2016-09-25 09:40 | CONS ---
Date/Time of Note Date/Time of Note DATE: 09/25/16 TIME: 09:36 Assessment/Plan Assessment/Plan Additional Assessment/Plan 66 yo male with a past medical history of essential hypertension, tracheostomy, who presents with fevers/chills x 3 days. He states that for the last 3 days, he has had cough with productive greenish sputum, blood tinged sputum, and high fevers with muscle/bone pain. He also complains of headaches. He is progressively getting short of breath. Denies any chest pain, loss of consciousness, urinary/bowel irregularities, nausea/vomiting/diarrhea/ constipation, or other constitutional symptoms. He recently came from [facility] in July 2016. Denies any sick contacts. Renal has been consulted for Acute kidney injury vs LELA on CKD 1. Sepsis 2/2 PNA 2. Acute kidney injury vs acute kidney injury on CKD unknown stage - 2/2 ATN From sepsis 3. Essential hypertension on Hydralazine, on amlodipine 5mg po daily for better BP control 4. Tracheostomy - frequent cleaning AFB X 3 negative renal US showed small kidneys c/w medical renal disease ,sputum AFB sent S/p 2 liter of D5 W in last two day,K bumped to 5.8, Cr bumped to 2.9- levaquin has been changed to Q 48 hr, will give IVF D5NS x 2 liter then reassess creatinine in AM , kayexalate 30 gram POx 1 dose now for high K will follow up Consultation Date/Type/Reason Admit Date/Time Sep 20, 2016 at 20:10 Initial Consult Date 09/21/16 Type of Consultation: NEPHROLOGY Reason for Consultation acute kidney injury on CKD Referring Provider: ADELFO ADKINS MD 24 HR Interval Summary Free Text/Dictation K bumped to 5.8, Cr bumped to 2.97- no Cough, AFB X 3 negative Exam/Review of Systems Vital Signs Vitals Vital Signs Date Time Temp Pulse Resp B/P Pulse Ox O2 Delivery O2 Flow Rate FiO2 09/25/16 08:08 98.6 101 20 127/72 99 Intake and Output 09/24/16 09/24/16 09/25/16 15:00 23:00 07:00 Intake Total 1200 ml 350 ml Balance 1200 ml 350 ml Exam Constitutional: alert Psych: no complaints Head: normocephalic ENMT: nl external ears & nose Respiratory: clear to auscultation, other (decreased BS on both lower lobes ) Cardiovascular: regular rate and rhythm Gastrointestinal: soft Results Result Diagram: 09/25/16 0500 09/25/16 0500 Results 24 hrs Laboratory Tests Test 09/25/16 05:00 Activated Partial Thromboplast Time 36.6 H Anion Gap 19 H Basophils # 0.1 Basophils % 1.0 Blood Urea Nitrogen 20 Calcium Level 9.4 Carbon Dioxide Level 28 Chloride Level 104 Creatinine 2.97 H Eosinophils # 0.6 H Eosinophils % 10.1 H Glucose Level 90 Hematocrit 35.4 L Hemoglobin 11.3 L INR International Normalized Ratio 1.01 Lymphocytes # 1.6 Lymphocytes % 25.5 Mean Corpuscular Hemoglobin 30.3 Mean Corpuscular Hemoglobin Concent 31.9 L Mean Corpuscular Volume 94.9 Mean Platelet Volume 8.3 Monocytes # 0.5 Monocytes % 8.6 Neutrophils # 3.3 Neutrophils % 52.7 Nucleated Red Blood Cells # 0.0 Nucleated Red Blood Cells % 0.0 Platelet Count 452 #H Potassium Level 5.8 H Prothrombin Time 13.3 Prothrombin Time Ratio 1.0 Red Blood Count 3.73 L Red Cell Distribution Width 14.9 H Sodium Level 145 H White Blood Count 6.3 Medications Medications Current Medications Lorazepam (Ativan) 0.5 mg Q6H PRN IV ANXIETY; Start 09/20/16 at 20:30 Ondansetron HCl (Zofran Inj) 4 mg Q6H PRN IV NAUSEA AND/OR VOMITING; Start at 20:30 Nitroglycerin (Nitroglycerin (Sl Tab) 0.4 Mg) 1 tab Q5M PRN SL CHEST PAIN; Start 09/20/16 at 20:30 Acetaminophen (Tylenol Tab) 650 mg Q6H PRN PO PAIN LEVEL 1-3 OR FEVER Last administered on 09/25/16t 08:17; Admin Dose 650 MG; Start 09/20/16 at 20:30 Morphine Sulfate (morphine) 2 mg Q4H PRN IV PAIN LEVEL 7-10; Start 09/20/16 at 20:30 Docusate Sodium (Colace) 100 mg Q12H PRN PO CONSTIPATION; Start 09/20/16 at 20: 30 Heparin Sodium (Porcine) (Heparin (5000 Units/0.5 ml)) 5,000 unit Q12 SC Last administered on 09/25/16 08:11; Admin Dose 5,000 UNIT; Start 09/20/16 at 21:00 Hydralazine HCl (Apresoline) 10 mg Q6H PRN IV sbp > 160; Start 09/20/16 at 20: 30 Amlodipine Besylate (Norvasc) 5 mg DAILY PO Last administered on 09/25/16 08:09 ; Admin Dose 5 MG; Start 09/22/16 at 09:00 Levothyroxine Sodium (Synthroid) 100 mcg DAILY@06 PO Last administered on 05:06; Admin Dose 100 MCG; Start 09/22/16 at 06:00 Voriconazole 200 mg 200 mg BID PO Last administered on 09/25/16 08:09; Admin Dose 200 MG; Start 09/22/16 at 21:00 Levofloxacin/ Dextrose (Levaquin 500mg/ D5W 100 ml (Pmx)) 100 ml @ 100 mls/hr Q48H IVPB Last administered on 09/23/16 13:41; Admin Dose 100 MLS/HR; Start at 13:00 MASSIMO BRADLEY MD Sep 25, 2016 09:40
[2016-09-25] MEDS ORDERED: DEXTROSE 5%-0.9% NACL 1,000 ML IV SCH (10:00)
[2016-09-25] MEDS ORDERED: NA POLYST SULFON 15 GM/60 ML BTL PO ONE (10:00)
--- NOTE | 2016-09-25 11:58 | CONS ---
Date/Time of Note Date/Time of Note DATE: 09/25/16 TIME: 11:53 Assessment/Plan Assessment/Plan Chief Complaint/Hosp Course SUBJECTIVE: No events, looks comfortable, no fevers MICROBIOLOGY: Blood and urine cultures remain negative. Influenza swab negative. Sputum for AFB was negative for 3 sets Abx: 1. Voriconazole. 2. Levaquin PHYSICAL EXAMINATION: GENERAL: This is a cachectic elderly man who is alert, in no distress. HEENT: Head atraumatic, normocephalic. Sclerae anicteric. Buccal mucosa pink , dry. NECK: Supple, trachea midline. CHEST: Rise symmetrical. Breath sounds diminished to bases. HEART: S1, S2. ABDOMEN: Soft. Bowel tones present. EXTREMITIES: Without cyanosis. ASSESSMENT: 1. Pneumonia with mycetoma 2. Emphysema. 3. Acute on chronic kidney disease. 4. Hypertension. 5. History of laryngeal cancer. PLAN: The patient remains stable, will dc isolation, anticipate dc on Vfend for 6 months, f/u pulmonary outpatient ESMER Palacio Problems: Consultation Date/Type/Reason Admit Date/Time Sep 20, 2016 at 20:10 Initial Consult Date 09/21/16 Type of Consultation: ID Referring Provider: ADELFO ADKINS MD Exam/Review of Systems Vital Signs Vitals Vital Signs Date Time Temp Pulse Resp B/P Pulse Ox O2 Delivery O2 Flow Rate FiO2 09/25/16 08:08 98.6 101 20 127/72 99 Intake and Output 09/24/16 09/24/16 09/25/16 15:00 23:00 07:00 Intake Total 1200 ml 350 ml Balance 1200 ml 350 ml Results Result Diagram: 09/25/16 0500 09/25/16 0500 Results 24 hrs Laboratory Tests Test 09/25/16 05:00 Activated Partial Thromboplast Time 36.6 H Anion Gap 19 H Basophils # 0.1 Basophils % 1.0 Blood Urea Nitrogen 20 Calcium Level 9.4 Carbon Dioxide Level 28 Chloride Level 104 Creatinine 2.97 H Eosinophils # 0.6 H Eosinophils % 10.1 H Glucose Level 90 Hematocrit 35.4 L Hemoglobin 11.3 L INR International Normalized Ratio 1.01 Lymphocytes # 1.6 Lymphocytes % 25.5 Mean Corpuscular Hemoglobin 30.3 Mean Corpuscular Hemoglobin Concent 31.9 L Mean Corpuscular Volume 94.9 Mean Platelet Volume 8.3 Monocytes # 0.5 Monocytes % 8.6 Neutrophils # 3.3 Neutrophils % 52.7 Nucleated Red Blood Cells # 0.0 Nucleated Red Blood Cells % 0.0 Platelet Count 452 #H Potassium Level 5.8 H Prothrombin Time 13.3 Prothrombin Time Ratio 1.0 Red Blood Count 3.73 L Red Cell Distribution Width 14.9 H Sodium Level 145 H White Blood Count 6.3 Medications Medications Current Medications Lorazepam (Ativan) 0.5 mg Q6H PRN IV ANXIETY; Start 09/20/16 at 20:30 Ondansetron HCl (Zofran Inj) 4 mg Q6H PRN IV NAUSEA AND/OR VOMITING; Start at 20:30 Nitroglycerin (Nitroglycerin (Sl Tab) 0.4 Mg) 1 tab Q5M PRN SL CHEST PAIN; Start 09/20/16 at 20:30 Acetaminophen (Tylenol Tab) 650 mg Q6H PRN PO PAIN LEVEL 1-3 OR FEVER Last administered on 09/25/16 08:17; Admin Dose 650 MG; Start 09/20/16 at 20:30 Morphine Sulfate (morphine) 2 mg Q4H PRN IV PAIN LEVEL 7-10; Start 09/20/16 at 20:30 Docusate Sodium (Colace) 100 mg Q12H PRN PO CONSTIPATION; Start 09/20/16 at 20: 30 Heparin Sodium (Porcine) (Heparin (5000 Units/0.5 ml)) 5,000 unit Q12 SC Last administered on 09/25/16 08:11; Admin Dose 5,000 UNIT; Start 09/20/16 at 21:00 Hydralazine HCl (Apresoline) 10 mg Q6H PRN IV sbp > 160; Start 09/20/16 at 20: 30 Amlodipine Besylate (Norvasc) 5 mg DAILY PO Last administered on 09/25/16 08:09 ; Admin Dose 5 MG; Start 09/22/16 at 09:00 Levothyroxine Sodium (Synthroid) 100 mcg DAILY@06 PO Last administered on 05:06; Admin Dose 100 MCG; Start 09/22/16 at 06:00 Voriconazole 200 mg 200 mg BID PO Last administered on 09/25/16 08:09; Admin Dose 200 MG; Start 09/22/16 at 21:00 Levofloxacin/ Dextrose 100 ml @ 100 mls/hr Q48H IVPB Last administered on 09/23 13:41; Admin Dose 100 MLS/HR; Start 09/23/16 at 13:00 Dextrose/Sodium Chloride (D5-NS) 1,000 ml @ 80 mls/hr [id number] IV Last administered on 09/25/16 09:57; Admin Dose 80 MLS/HR; Start 09/25/16 at 10:00; Stop 09/26/16 at 10:59 SHEYLA RICHARDSON NP Sep 25, 2016 11:57
[2016-09-25] MEDS: LEVOFLOXACIN 500MG/D5W (PMX) 100 ML IVPB SCH (12:31)
[2016-09-25] MEDS ORDERED: AMLO-145 PO (13:21)
[2016-09-25] MEDS ORDERED: VORI200T9 PO (13:21)
[2016-09-25] MEDS ORDERED: SYN1 PO (13:27)
--- NOTE | 2016-09-25 13:34 | DS ---
Date/Time of Note Date/Time of Note DATE: 09/25/16 TIME: 13:25 Discharge Summary Admission/Discharge Info Admit Date/Time Sep 20, 2016 at 20:10 Discharge Date/Time Final Diagnosis 1. Pneumonia with mycetoma, Vfend for 6 months, follow up with ID and pulmonology 2. COPD exacerbation and acute bronchitis. stable 3. History of laryngectomy for laryngeal cancer 4. HTN, controlled 5. Hypothyroidism, on supplement Patient Condition: Stable Hx of Present Illness 66 yo male with a past medical history of essential hypertension, tracheostomy, who presents with fevers/chills x 3 days. He states that for the last 3 days, he has had cough with productive greenish sputum, blood tinged sputum, and high fevers with muscle/bone pain. He also complains of headaches. He is progressively getting short of breath. Denies any chest pain, loss of consciousness, urinary/bowel irregularities, nausea/vomiting/diarrhea/ constipation, or other constitutional symptoms. He recently came from [facility] in July 2016. Denies any sick contacts. Hospital Course CT scan revealed left upper lobe with traction bronchiectasis and associated volume loss/leftward mediastinal shift, presumably sequelae of prior granulomatous infection. There may be a fungus ball/mycetoma with an area of cavitation within the consolidated left upper lobe. Patient had three negative sputum AFBs. The pulmonary lesion is considered fungal infection. Patient will be on 6 months antifungal treatment with Vfend. For hypertension, it is controlled with norvasc. He is found of having hypothyroidism with TSH 62. He is on synthroid 100 mcg po daily. the dosage will be adjusted per PCP based on TSH level. [place] [id number] Radiology Main Line: [phone] DIAGNOSTIC IMAGING REPORT Patient: RADHA BORGES : 1950 Age: 66 Sex: M MR #: [id number] DOS: 09/20/16 0000 Ordering MD: FRANCISCA FLAHERTY PA-C Location: [facility] [place] Room/Bed: PROCEDURE: CT Chest without contrast. CLINICAL INDICATION: Cough/fever TECHNIQUE: Volumetrically acquired images of the thorax obtained without intravenous contrast were reformatted in the axial, coronal, and sagittal planes. Radiation dose: CTDIvol = 3.9 mGy; total DLP = 153 mGy-cm. One or more of the following dose reduction techniques were used: - Automated exposure control. - Adjustment of the mA and/or kV according to patient size. - Use of iterative reconstruction technique. COMPARISON: No prior studies are available for comparison. FINDINGS: There is complete cicatricial atelectasis with fibrotic consolidation of the left upper lobe with traction bronchiectasis. There is a mucous impaction. There may be a fungus ball/mycetoma identified in an area of cavitation within the consolidated left upper lobe. There is moderate centrilobular and paraseptal emphysema with diffuse bronchial wall thickening and airway ectasia. There are scattered subcentimeter pulmonary nodules measuring up to 6 mm in the right upper, right middle, and left lower lobes. There is peribronchial ground- glass opacity with interstitial thickening identified in the anterior segment of the left upper lobe. There are multiple subcentimeter nasim-centimeter lymph nodes identified in the bilateral paratracheal and para-aortic lymph node stations, likely reactive. Normal heart size without pericardial effusion. Included upper abdomen reveals no significant abnormality. No suspicious osseous lesion. IMPRESSION: Complete cicatricial atelectasis of the left upper lobe with traction bronchiectasis and associated volume loss/leftward mediastinal shift, presumably sequelae of prior granulomatous infection. There may be a fungus ball /mycetoma with an area of cavitation within the consolidated left upper lobe. Scattered nodular opacities in conjunction with areas of exudative inflammatory airway changes are concerning for superimposed acute granulomatous infection ( i.e. Fungal, mycobacterial). Consider correlation with bronchoscopy/ bronchoalveolar lavage. Background of moderate emphysema. Reactive multi-compartmental mediastinal lymphadenopathy. RPTAT: [facility] .Artie Craven MD, MD Date Time Electronically viewed and signed by .Artie Craven MD, MD on 09/20/2016 15:52 .C/ CC: FRANCISCA FLAHERTY Home Meds Active Scripts Voriconazole* (Voriconazole*) 200 Mg Tablet, 200 MG PO BID for 30 Days, TAB 5 Refills Prov:PEDRO VELASCO MD 09/25/16 Amlodipine Besylate* (Amlodipine Besylate*) 5 Mg Tablet, 5 MG PO DAILY for 30 Days, TAB Prov:PEDRO VELASCO MD 09/25/16 Discontinued Scripts Dextromethorphan Hb-Promethazine Hcl (Promethazine DM Syrup) 473 Ml Syrup, 5 ML PO Q6 Y for COUGH for 5 Days, ML Prov:ELAINE LÓPEZ MD 03/15/16 Azithromycin* (Zithromax*) 250 Mg Tablet, 250 MG PO .ZPACK DIRECTED, #6 TAB TAKE 500 MG (2 TABS) THE FIRST DAY THEN 250 MG (1 TAB) DAYS 2-5 Prov:ELAINE LÓPEZ MD 03/15/16 Follow-up Plan Dr. Lowry in 2 weeks PCP in one week Pulmonology in 2 weeks Pending Labs Laboratory Tests Test 09/25/16 05:00 Activated Partial Thromboplast Time 36.6Sec (25.0-35.0) Anion Gap 19 (8-16) Basophils # 0.110^3/ul (0.0-0.1) Basophils % 1.0% (0.0-2.0) Blood Urea Nitrogen 20mg/dl (7-20) Calcium Level 9.4mg/dl (8.4-10.2) Carbon Dioxide Level 28mmol/L (21-31) Chloride Level 104mmol/L (97-110) Creatinine 2.97mg/dl (0.61-1.24) Eosinophils # 0.610^3/ul (0.0-0.5) Eosinophils % 10.1% (0.0-7.0) Glucose Level 90mg/dl (70-220) Hematocrit 35.4% (42.0-52.0) Hemoglobin 11.3g/dl (14.0-18.0) INR International Normalized Ratio 1.01 Lymphocytes # 1.610^3/ul (0.8-2.9) Lymphocytes % 25.5% (15.0-51.0) Mean Corpuscular Hemoglobin 30.3pg (29.0-33.0) Mean Corpuscular Hemoglobin Concent 31.9g/dl (32.0-37.0) Mean Corpuscular Volume 94.9fl (82.0-101.0) Mean Platelet Volume 8.3fl (7.4-10.4) Monocytes # 0.510^3/ul (0.3-0.9) Monocytes % 8.6% (0.0-11.0) Neutrophils # 3.310^3/ul (1.6-7.5) Neutrophils % 52.7% (39.0-77.0) Nucleated Red Blood Cells # 0.010^3/ul (0.0-0.0) Nucleated Red Blood Cells % 0.0/100WBC (0.0-0.0) Platelet Count 14854^3/UL (140-415) Potassium Level 5.8mmol/L (3.5-5.1) Prothrombin Time 13.3Sec (12.2-14.2) Prothrombin Time Ratio 1.0 Red Blood Count 3.7310^6/ul (4.70-6.10) Red Cell Distribution Width 14.9% (11.5-14.5) Sodium Level 145mmol/L (135-144) White Blood Count 6.310^3/ul (4.8-10.8) PEDRO VELASCO MD Sep 25, 2016 13:34
--- NOTE | 2016-09-25 13:48 | PN ---
DATE: 09/25/2016 The patient Ramirez is stable this morning. PHYSICAL EXAMINATION: VITAL SIGNS: Temperature 98, pulse 101, blood pressure 127/72, O2 saturation 99%. No evidence of r espiratory distress. NECK: Supple. No JVD or lymphadenopathy. CARDIAC: S1, S2. No added sounds or murmurs. CHEST: Diminished air entry bilaterally. ABDOMEN: Soft, nontender. No guarding or rebound. EXTREMITIES: No cyanosis, clubbing, edema. NEUROLOGIC: Generalized weakness. LABORATORY DATA: White count 6.3, hemoglobin 11.3, platelets of 452. Sodium 145, potassium 5.8. IMPRESSION AND PLAN: 1. Chronic cavitary lung disease and mycetoma. 2. Status post acute bronchitis. 3. Three negative AFBs. 4. History of laryngeal CA with laryngectomy. 5. History of hypernatremia and hyperkalemia. PLAN: 1. Correction of electrolyte imbalance. 2. Continue antifungal medication per ID. 3. Discharge planning okay from pulmonary standpoint. Dictated By: ALEXANDRA JOHNSTON/VINEET Conf#: [id number] DID#: [id number]
== END 2016-09-25 17:37 | disposition home or self-care (01) | DRG 871 ==
LOC: FTE 11:54 → PP2 20:10
PROVIDERS: ADMIT Student in an Organized Health Care Education/Training Program; ATTEND Student in an Organized Health Care Education/Training Program
DX: A41.9 Sepsis, unspecified organism (principal); N17.0 Acute kidney failure with tubular necrosis; J18.9 Pneumonia, unspecified organism; J44.0 Chronic obstructive pulmonary disease with (acute) lower respiratory infection; J44.1 Chronic obstructive pulmonary disease with (acute) exacerbation; B47.9 Mycetoma, unspecified; J98.11 Atelectasis; Z93.0 Tracheostomy status; J98.4 Other disorders of lung; J20.9 Acute bronchitis, unspecified; N18.9 Chronic kidney disease, unspecified; I12.9 Hypertensive chronic kidney disease with stage 1 through stage 4 chronic kidney disease, or unspecified chronic kidney disease; E03.9 Hypothyroidism, unspecified; Z85.21 Personal history of malignant neoplasm of larynx; Z87.891 Personal history of nicotine dependence
CPT/HCPCS: 36415; 71020; 71250; 76775; 80048; 80053; 80061; 81001; 81003; 82550; 82553; 83036; 83605; 83735; 84146; 84436; 84439; 84443; 84479; 84481; 84484; 85025; 85610; 85730; 86480; 86606; 86703; 87040; 87086; 87116; 87220; 87400; 93005; 96374; J1450; J1956; J2270; J2543; J3370; J3475; J7030; J7042; J7070

== ENCOUNTER 2017-08-28 15:22 | Emergency (ER) | END 2017-08-28 22:28 | disposition home or self-care (01) ==